=== PATIENT | female | born 1965 | race Caucasian/White ===

== ENCOUNTER 2020-06-25 07:09 | Outpatient (REF) | payer OTHER, SELFPAY ==
[2020-06-25 08:06] LABS: MANUAL DIFF FLAG NO
[2020-06-25 08:15] LABS: Basophils Percent Auto 0.7 % (0-2); Eosinophils Absolute Auto 0.2 X10*3/uL (0.0-0.4); Eosinophils Percent Auto 3.3 % (0-4); Hematocrit 41.4 % (37-47); Hemoglobin 13.6 g/dl (12.0-16.0); Imm Gran Abs Auto 0.01 X10*3/uL (0.00-0.03); Imm Gran Pct Auto 0.2 % (0.0-0.4); Lymphocytes Absolute Auto 1.5 X10*3/uL (1.2-4.9); Lymphocytes Percent Auto 28.4 % (20-40); Mean Corpuscular HGB Conc 32.9 g/dl (31.0-35.0); Mean Corpuscular Hemoglobin 31.4 pg (27.0-33.0); Mean Corpuscular Volume 95.6 fL (80-98); Mean Platelet Volume 12.1 fL (9.4-12.3); Monocytes Absolute Auto 0.5 X10*3/uL (0.1-1.2); Monocytes Percent Auto 8.7 % (2-11); Neutrophils Absolute Auto 3.2 X10*3/uL (2.0-8.3); Neutrophils Percent Auto 58.7 % (45-73); Platelet Count 247 X10*3/uL (160-400); Red Blood Count 4.33 X10*6/uL (4.20-5.50); Red Cell Distribution Width 12.2 % (11.0-16.0); White Blood Count 5.4 X10*3/uL (4.8-10.8)
[2020-06-25 08:41] LABS: Alanine Aminotransferase 30 U/L (0-31); Albumin Level 4.6 g/dL (3.5-5.0); Alkaline Phosphatase 67 U/L (39-117); Anion Gap 12 (12-20); Aspartate Amino Transferase 21 U/L (5-31); Bilirubin Total 0.7 mg/dL (0.0-1.0); Blood Urea Nitrogen 18 mg/dL (9-16); Calcium 9.5 mg/dL (8.4-10.2); Carbon Dioxide 30 mmol/L (22-29); Chloride 104 mmol/L (96-108); Cholesterol 232 mg/dL; Estimated Glomerular Filt Rate > 60; Glucose Fasting 107 mg/dL (60-99); HDL Cholesterol 46 mg/dL; LDL Cholesterol Calculated 171 mg/dl; Potassium 3.5 mmol/l (3.3-5.1); Sodium 142 mmol/L (135-145); Total Protein 7.2 g/dL (6.5-8.0); Triglycerides 75 mg/dL
== END 2020-06-25 07:10 | disposition home or self-care (01) ==
LOC: HO.LAB 07:09
PROVIDERS: PCP Internal Medicine Medical Oncology; Visit Provider Internal Medicine Medical Oncology
DX: E66.9 Obesity, unspecified (principal); Z91.09 Other allergy status, other than to drugs and biological substances
CPT/HCPCS: 36415; 80053; 80061; 85025

== ENCOUNTER 2020-11-19 15:07 | Outpatient (REF) | payer OTHER, SELFPAY ==
--- NOTE | ~2020-11-19 | XR_ITS ---
EXAMINATION: XR LUMBOSACRAL SPINE CLINICAL INFORMATION: Low back pain COMPARISON: Previous x-ray December 2010 TECHNIQUE: 2 views of the lumbar spine FINDINGS: There is mild 3 mm anterior subluxation of L4 with respect L5. Bone alignment is otherwise normal. No fracture or dislocation is seen. Disc spaces are normal. There is lower lumbar spine facet arthritis. XR/XR lumbar spine 2-3V IMPRESSION: Lower lumbar spine facet arthritis and mild 3 mm anterior subluxation of L4 with respect L5.
== END 2020-11-19 15:08 | disposition home or self-care (01) ==
LOC: HO.XRAY 15:07
PROVIDERS: PCP Internal Medicine Medical Oncology; Visit Provider Internal Medicine Medical Oncology
DX: M54.5 Low back pain (principal)
CPT/HCPCS: 72100

== ENCOUNTER 2021-03-16 07:26 | Outpatient (REF) | payer OTHER, SELFPAY ==
--- NOTE | ~2021-03-16 | MM_ITS ---
EXAMINATION: MM SCREENING DIGITAL BREAST TOMOSYNTHESIS, BILATERAL CLINICAL INFORMATION: Screening. Asymptomatic. The lifetime risk of breast cancer based on the Tyrer-Cuzick Model is 7.3%. COMPARISON: Mammography: November 27, 2019 and studies dating back to January 30, 2009 TECHNIQUE: Digital breast tomosynthesis is performed in both the craniocaudal and mediolateral oblique views along with computer-aided detection (CAD). Synthesized 2D images are generated from the tomosynthesis. FINDINGS: The breasts are heterogeneously dense, which may obscure small masses (ACR BI-RADS breast composition Category c). There are no significant masses, abnormal calcifications, or other abnormalities. MM/MM tomosynthesis screening BI IMPRESSION: There are no significant changes from prior study. ASSESSMENT: BI-RADS 1: Negative RECOMMENDATION: Routine annual mammography screening. This patient's information was entered into a reminder system with a target due date for their next mammogram.
== END 2021-03-16 07:27 | disposition home or self-care (01) ==
LOC: HO.MAMMO 07:26
PROVIDERS: Visit Provider Internal Medicine Medical Oncology
DX: Z12.31 Encounter for screening mammogram for malignant neoplasm of breast (principal)
CPT/HCPCS: 77063; 77067

== ENCOUNTER → 2021-03-19 08:14 | Outpatient (REF) | payer OTHER, SELFPAY ==
--- NOTE | 2021-03-19 08:19 | CA_ITS ---
Acquisition Time: 2021-03-19 08:22:37 Total Exercise Time: 00:07:30 Test Indications: Screening for CAD Medications: LORATIDINE Protocol: PATRICK Max HR: 148 BPM 90% of Pred: 164 BPM Max BP: 162/076 mmHG Max Work Load: 9.3 METS Exercise stress test with exercise 7 min 30 sec of Patrick protocol, with mild sob, no chest discomfort, without arrythmia, with normotensive response to exercise, without EKG changes meeting criteria for ischemia. Test reviewed with Dr Quesada. Referred By: Hawk Cunningham Overread By: SHALONDA MATAMOROS
== END ==
LOC: HO.CARD 08:14
PROVIDERS: PCP Internal Medicine Medical Oncology; Visit Provider Internal Medicine Medical Oncology
DX: E66.9 Obesity, unspecified (principal); E87.5 Hyperkalemia; Z82.49 Family history of ischemic heart disease and other diseases of the circulatory system
CPT/HCPCS: 93017

== ENCOUNTER 2021-06-09 10:04 | Outpatient (REF) | payer OTHER, SELFPAY ==
[2021-06-09 10:40] LABS: MANUAL DIFF FLAG NO
[2021-06-09 10:53] LABS: Basophils Percent Auto 0.9 % (0-2); Eosinophils Absolute Auto 0.1 X10*3/uL (0.0-0.4); Eosinophils Percent Auto 2.2 % (0-4); Hematocrit 42.2 % (37-47); Hemoglobin 13.7 g/dl (12.0-16.0); Imm Gran Abs Auto 0.02 X10*3/uL (0.00-0.03); Imm Gran Pct Auto 0.4 % (0.0-0.4); Lymphocytes Absolute Auto 1.4 X10*3/uL (1.2-4.9); Lymphocytes Percent Auto 29.4 % (20-40); Mean Corpuscular HGB Conc 32.5 g/dl (31.0-35.0); Mean Corpuscular Hemoglobin 30.6 pg (27.0-33.0); Mean Corpuscular Volume 94.4 fL (80-98); Mean Platelet Volume 11.5 fL (9.4-12.3); Monocytes Absolute Auto 0.4 X10*3/uL (0.1-1.2); Monocytes Percent Auto 8.7 % (2-11); Neutrophils Absolute Auto 2.7 X10*3/uL (2.0-8.3); Neutrophils Percent Auto 58.4 % (45-73); Platelet Count 266 X10*3/uL (160-400); Red Blood Count 4.47 X10*6/uL (4.20-5.50); Red Cell Distribution Width 12.5 % (11.0-16.0); White Blood Count 4.6 X10*3/uL (4.8-10.8)
[2021-06-09 11:11] LABS: Alanine Aminotransferase 29 U/L (0-31); Albumin Level 4.5 g/dL (3.5-5.0); Alkaline Phosphatase 84 U/L (39-117); Anion Gap 11 (12-20); Aspartate Amino Transferase 22 U/L (5-31); Bilirubin Total 0.7 mg/dL (0.0-1.0); Blood Urea Nitrogen 15 mg/dL (9-16); Calcium 9.2 mg/dL (8.4-10.2); Carbon Dioxide 29 mmol/L (22-29); Chloride 106 mmol/L (96-108); Cholesterol 230 mg/dL; Estimated Glomerular Filt Rate > 60; Glucose Fasting 106 mg/dL (60-99); HDL Cholesterol 48 mg/dL; LDL Cholesterol Calculated 165 mg/dl; Sodium 142 mmol/L (135-145); Total Protein 7.1 g/dL (6.5-8.0); Triglycerides 87 mg/dL
== END 2021-06-09 10:05 | disposition home or self-care (01) ==
LOC: HO.LAB 10:04
PROVIDERS: PCP Internal Medicine Medical Oncology; Visit Provider Internal Medicine Medical Oncology
DX: E66.9 Obesity, unspecified (principal); E78.5 Hyperlipidemia, unspecified; Z82.49 Family history of ischemic heart disease and other diseases of the circulatory system
CPT/HCPCS: 36415; 80053; 80061; 85025

== ENCOUNTER 2021-08-10 08:18 | Outpatient (REF) | payer OTHER, SELFPAY ==
[2021-08-10 09:46] LABS: Estimated Average Glucose 103 mg/dL; Hemoglobin A1c % 5.2 %
== END 2021-08-10 08:19 | disposition home or self-care (01) ==
LOC: HO.LAB 08:18
PROVIDERS: PCP Internal Medicine Medical Oncology; Visit Provider Internal Medicine Medical Oncology
DX: R73.9 Hyperglycemia, unspecified (principal)
CPT/HCPCS: 36415; 83036

== ENCOUNTER 2022-03-17 08:43 | Outpatient (REF) | payer OTHER, SELFPAY ==
--- NOTE | ~2022-03-17 | MM_ITS ---
EXAMINATION: MM SCREENING DIGITAL BREAST TOMOSYNTHESIS, BILATERAL CLINICAL INFORMATION: Screening. Asymptomatic. The lifetime risk of breast cancer based on the Tyrer-Cuzick Model is 6%. COMPARISON: Mammography: 03/16/2021, 11/27/2019, 09/15/2016 TECHNIQUE: Digital breast tomosynthesis is performed in both the craniocaudal and mediolateral oblique views along with computer-aided detection (CAD). Synthesized 2D images are generated from the tomosynthesis. FINDINGS: There are scattered areas of fibroglandular density (ACR BI-RADS breast composition Category b). There are no significant masses, abnormal calcifications, or other abnormalities. Parenchymal pattern is similar to prior exams. No developing density or architectural abnormality. No significant changes. MM/MM tomosynthesis screening BI IMPRESSION: No mammographic evidence of malignancy. ASSESSMENT: BI-RADS 1: Negative RECOMMENDATION: Routine annual mammography screening. This patient's information was entered into a reminder system with a target due date for their next mammogram.
== END 2022-03-17 08:44 | disposition home or self-care (01) ==
LOC: HO.MAMMO 08:43
PROVIDERS: PCP Internal Medicine Medical Oncology; Visit Provider Internal Medicine Medical Oncology
DX: Z12.31 Encounter for screening mammogram for malignant neoplasm of breast (principal)
CPT/HCPCS: 77063; 77067

== ENCOUNTER 2022-09-09 06:03 | Outpatient (REF) | payer OTHER, SELFPAY ==
[2022-09-09 06:17] LABS: MANUAL DIFF FLAG NO
[2022-09-09 07:44] LABS: Basophils Absolute Auto 0.1 X10*3/uL (0.0-0.2); Basophils Percent Auto 1.2 % (0-2); Eosinophils Absolute Auto 0.2 X10*3/uL (0.0-0.4); Eosinophils Percent Auto 4.2 % (0-4); Hematocrit 39.2 % (37.0-47.0); Hemoglobin 12.7 g/dl (12.0-16.0); Imm Gran Abs Auto 0.02 X10*3/uL (0.00-0.03); Imm Gran Pct Auto 0.4 % (0.0-0.4); Lymphocytes Absolute Auto 1.6 X10*3/uL (1.2-4.9); Lymphocytes Percent Auto 32.1 % (20-40); Mean Corpuscular HGB Conc 32.4 g/dl (31.0-35.0); Mean Corpuscular Hemoglobin 31.1 pg (27.0-33.0); Mean Corpuscular Volume 95.8 fL (80.0-98.0); Mean Platelet Volume 11.9 fL (9.4-12.3); Monocytes Absolute Auto 0.4 X10*3/uL (0.1-1.2); Monocytes Percent Auto 8.6 % (2-11); Neutrophils Absolute Auto 2.7 x10*3/uL (2.0-8.3); Neutrophils Percent Auto 53.5 % (45-73); Platelet Count 246 X10*3/uL (160-400); Red Blood Count 4.09 X10*6/uL (4.20-5.50); Red Cell Distribution Width 12.4 % (11.0-16.0)
[2022-09-09 08:34] LABS: Alanine Aminotransferase 19 U/L (0-31); Albumin Level 4.5 g/dL (3.5-5.0); Alkaline Phosphatase 77 U/L (39-117); Anion Gap 11 (12-20); Aspartate Amino Transferase 18 U/L (5-31); Bilirubin Total 0.7 mg/dL (0.0-1.0); Blood Urea Nitrogen 19 mg/dL (9-16); Calcium 9.4 mg/dL (8.4-10.2); Carbon Dioxide 30 mmol/L (22-29); Chloride 107 mmol/L (96-108); Cholesterol 258 mg/dL; Estimated Glomerular Filt Rate > 60; Glucose Fasting 105 mg/dL (60-99); HDL Cholesterol 46 mg/dL; LDL Cholesterol Calculated 193 mg/dl; Potassium 4.1 mmol/L (3.3-5.1); Sodium 144 mmol/L (135-145); Total Protein 7.1 g/dL (6.5-8.0); Triglycerides 98 mg/dL
== END 2022-09-09 06:04 | disposition home or self-care (01) ==
LOC: HO.LAB 06:03
PROVIDERS: PCP Internal Medicine Medical Oncology; Visit Provider Internal Medicine Medical Oncology
DX: Z00.00 Encounter for general adult medical examination without abnormal findings (principal); E66.9 Obesity, unspecified; E78.5 Hyperlipidemia, unspecified
CPT/HCPCS: 36415; 80053; 80061; 85025

== ENCOUNTER 2023-02-17 07:22 | Day surgery (SDC) | payer OTHER, SELFPAY ==
[2023-02-11 16:22] VITALS: BMI 34.8
--- NOTE | 2023-02-16 08:32 | P.CONAN_ITS ---
Documented by User: Gretchen Jacobsen NP 02/16/23 08:32 HPI - Anesthesia Eval Consult details Narrative: 57yo F for Colonoscopy [facility] Past Medical History Medical History Asthma Hypertension Lab test negative for COVID-19 virus Surgical History Surgical History History of tubal ligation Hx of hysterectomy Social History Social History Alcohol intake: current Alcohol intake frequency: a few times a month Advance Directives: No Advance Directives Information Provided: Yes Meds Allergies Allergy/AdvReac Type Severity Reaction Status Date / Time No Known Allergies Allergy Verified 02/17/23 07:31 [No Known Allergies*] Home Medications Medication Instructions Recorded Confirmed Last Taken Type albuterol sulfate 90 mcg/actuation 2 puff inhalation Q4-6H PRN 07/29/20 02/17/23 Unknown History aerosol inhaler (ProAir HFA) Shortness Of Breath cetirizine 5 mg-pseudoephedrine ER 1 tab PO BID 07/29/20 02/17/23 Unknown History 120 mg tablet,extended release,12hr (Zyrtec-D) lisinopril 20 mg tablet 20 mg PO DAILY 07/19/22 02/17/23 Unknown History One-A-Day Women's Complete 1 tab PO DAILY 02/17/23 02/17/23 Unknown History Vitamin D3 1 tab PO DAILY 02/17/23 02/17/23 Unknown History biotin 1 tab PO DAILY 02/17/23 02/17/23 Unknown History Exam Exam Date and Time: February 16, 2023 0832 Height,Weight and Vital Signs: Height 5 ft 1 in Weight 83.461 kg Assessment and Plan Assessment Anesthesia Assessment: Chart Reviewed Documented by User: Lizzette Quintana MD 02/17/23 08:00 [facility] Past Medical History Medical History Asthma Hypertension Lab test negative for COVID-19 virus Surgical History Surgical History History of tubal ligation Hx of hysterectomy History of Problems with Anesthesia: No Social History Social History Alcohol intake: current Alcohol intake frequency: a few times a month Advance Directives: No Advance Directives Information Provided: Yes Meds Allergies Allergy/AdvReac Type Severity Reaction Status Date / Time No Known Allergies Allergy Verified 02/17/23 07:31 [No Known Allergies*] Home Medications Medication Instructions Recorded Confirmed Last Taken Type albuterol sulfate 90 mcg/actuation 2 puff inhalation Q4-6H PRN 07/29/20 02/17/23 Unknown History aerosol inhaler (ProAir HFA) Shortness Of Breath cetirizine 5 mg-pseudoephedrine ER 1 tab PO BID 07/29/20 02/17/23 Unknown History 120 mg tablet,extended release,12hr (Zyrtec-D) lisinopril 20 mg tablet 20 mg PO DAILY 07/19/22 02/17/23 Unknown History One-A-Day Women's Complete 1 tab PO DAILY 02/17/23 02/17/23 Unknown History Vitamin D3 1 tab PO DAILY 02/17/23 02/17/23 Unknown History biotin 1 tab PO DAILY 02/17/23 02/17/23 Unknown History Exam Airway Mallampati Class: II TM Dist: >3cm Neck ROM: Full Loose/Missing/Broken Teeth: No Heart: RRR Lungs: CTA Assessment and Plan Assessment Anesthesia Assessment: Anesthesia Plan Discussed Final Anesthetic Review History of Problems with Anesthesia: No NPO: Yes ASA Class: II Final Preanesthetic Review: Meds/Allgs Chart Reviewed, Consent Obtained/Reviewed and Anes Risks/Benef Reviewed Patient Risk: Low Procedure Risk: Low Anesthetic Plan Anesthetic Plan: MAC: Disposition: Standard PACU
[2023-02-17 07:33] VITALS: BP 160/85; PULSE 76; RESP 16; TEMP 36.3; O2SAT 97; BMI 34.0
[2023-02-17] MEDS: Lactated Ringers 1,000 ML 100 ML IVCONT (07:57)
--- NOTE | 2023-02-17 08:36 | MHC.SHP ---
Pre-Procedural Eval Section A Date of Service: 02/17/23 Section B Chief Complaint: screening Relevant Family History (Specify if Yes): No Relevant Social History: None Present Medications: see Short Stay Collaborative assessment Medical History: Significant History (Asthma Hypertension) History of Previous Operations: Relevant previous surgery/procedure and date(s) (History of tubal ligation Hx of hysterectomy) Allergies: Allergies Allergy/AdvReac Type Severity Reaction Status Date / Time No Known Allergies Allergy Verified 02/17/23 07:31 [No Known Allergies*] Review of Systems Sugical H&P ROS: Negative: Constitution, Cardiovascular, Respiratory, Neurological, Psychiatric, Hem-Onc, Allergic/Immunologic, Gastrointestinal, Genitourinary, Musculoskeletal, Integumentary, Endocrine and Eyes/Ears/Nose/Throat Exam Surgical H&P Exam: Normal: HEENT, Normal: Heart, Normal: Lungs, Normal: Extremities, Normal: Abdomen, Normal: Skin and Normal: Neurological Plan Diagnosis/Plan: Unchanged I have reviewed the history and physical and performed a pertinent physical examination on my patient. No changes have occurred unless specified. Time Spent With Patient Time: Total time managing care of this patient today ____ minutes.
--- NOTE | 2023-02-17 08:37 | W.PM.OPN ---
Operative Note Operative Note Date of Service: 02/17/23 Narrative: Operative Information Procedure Description: Colonoscopy Indication: screening Anesthesia: MAC COLONOSCOPY Instrument: Olympus variable stiffness pediatric scope 190L Colonoscopy Monitoring: Vital signs and clinical assessment, continuous EKG monitoring, Pulse oximetry, Carbon Dioxide monitoring and blood pressure monitoring were done throughout the procedure. Colon withdrawal time was 8 minutes. Procedure: The patient was placed in the left lateral decubitis position and pre-procedure medications were administered. After a digital rectal examination of the ano-rectum, the video colonoscope was inserted into the rectum and advanced through the colon to the cecum/TI. The colonoscope was slowly withdrawn in a retrograde panoramic fashion and the colon mucosa was carefully examined including a retroflexed view of the rectum. Findings and interventions are described below. Procedure Difficulty: easy Findings: Terminal Ileum-normal Cecum: 6-7 mm sessile polyp removed with cold forceps Ascending Colon: normal Transverse Colon -normal Descending Colon:normal Sigmoid Colon: one 5-7 mm sessile polyp removed with cold forceps, another 8 mm sessile polyp removed with cold snare Rectum: Retroflexion with small internal hemorrhoids, grade I Anorectum - normal Colon preparation: [place] Bowel Preparation Scale Right colon; 3 Transverse colon: 3 Left colon; 3 (0 = Unprepared colon segment with mucosa not seen due to solid stool that cannot be cleared. 1 = Portion of mucosa of the colon segment seen, but other areas of the colon segment not well seen due to staining, residual stool and/or opaque liquid. 2 = Minor amount of residual staining, small fragments of stool and/or opaque liquid, but mucosa of colon segment seen well. 3 = Entire mucosa of colon segment seen well with no residual staining, small fragments of stool or opaque liquid) Impression and Post Procedure Diagnosis: polyps internal hemorrhoids Plan: High fiber diet leaflet Avoid straining at stool, epsom salts and sitz bath, anusol supps or cream Repeat Colonoscopy in 3-5 years or earlier if clinically indicated Above findings were reviewed with the patient and relevant handouts were provided if indicated.
[2023-02-17 09:11] VITALS: BP 119/64; PULSE 82; RESP 16; TEMP 37; O2SAT 97
[2023-02-17 09:29] VITALS: BP 130/68; PULSE 72; RESP 18; TEMP 37; O2SAT 96
== END 2023-02-17 09:55 | disposition home or self-care (01) ==
PROVIDERS: PCP Internal Medicine Medical Oncology; Visit Provider Internal Medicine Gastroenterology
PROC: 0DJD8ZZ Inspection of Lower Intestinal Tract, Via Natural or Artificial Opening Endoscopic (ICD-10-PCS; CPT 45378; principal; 2023-02-17 08:30)
DX: Z12.11 Encounter for screening for malignant neoplasm of colon (principal); D12.5 Benign neoplasm of sigmoid colon; K63.5 Polyp of colon; K64.0 First degree hemorrhoids; I10 Essential (primary) hypertension; J45.909 Unspecified asthma, uncomplicated; Z79.899 Other long term (current) drug therapy
CPT/HCPCS: 45385; 45380; 88305

== ENCOUNTER 2023-03-04 08:20 | Outpatient (REF) | payer OTHER, SELFPAY ==
[2023-03-04 08:45] LABS: MANUAL DIFF FLAG NO
[2023-03-04 09:06] LABS: Basophils Absolute Auto 0.1 X10*3/uL (0.0-0.2); Eosinophils Absolute Auto 0.2 X10*3/uL (0.0-0.4); Eosinophils Percent Auto 3.3 % (0-4); Hematocrit 39.5 % (37.0-47.0); Hemoglobin 13.1 g/dl (12.0-16.0); Imm Gran Abs Auto 0.04 X10*3/uL (0.00-0.03); Imm Gran Pct Auto 0.8 % (0.0-0.4); Lymphocytes Absolute Auto 1.7 X10*3/uL (1.2-4.9); Mean Corpuscular HGB Conc 33.2 g/dl (31.0-35.0); Mean Corpuscular Hemoglobin 31.6 pg (27.0-33.0); Mean Corpuscular Volume 95.2 fL (80.0-98.0); Mean Platelet Volume 11.5 fL (9.4-12.3); Monocytes Absolute Auto 0.5 X10*3/uL (0.1-1.2); Neutrophils Absolute Auto 2.7 x10*3/uL (2.0-8.3); Neutrophils Percent Auto 51.9 % (45-73); Platelet Count 241 X10*3/uL (160-400); Red Blood Count 4.15 X10*6/uL (4.20-5.50); Red Cell Distribution Width 12.9 % (11.0-16.0); White Blood Count 5.2 X10*3/uL (4.8-10.8)
[2023-03-04 09:58] LABS: Alanine Aminotransferase 26 U/L (0-31); Albumin Level 4.4 g/dL (3.5-5.0); Alkaline Phosphatase 73 U/L (39-117); Anion Gap 16 (12-20); Aspartate Amino Transferase 20 U/L (5-31); Bilirubin Total 0.9 mg/dL (0.0-1.0); Blood Urea Nitrogen 14 mg/dL (9-16); Calcium 9.9 mg/dL (8.4-10.2); Carbon Dioxide 23 mmol/L (22-29); Chloride 108 mmol/L (96-108); Cholesterol 283 mg/dL; Estimated Glomerular Filt Rate > 60; Glucose Fasting 109 mg/dL (60-99); HDL Cholesterol 45 mg/dL; LDL Cholesterol Calculated 223 mg/dl; Potassium 3.5 mmol/L (3.3-5.1); Sodium 143 mmol/L (135-145); Total Protein 7.7 g/dL (6.5-8.0); Triglycerides 75 mg/dL
== END 2023-03-04 08:21 | disposition home or self-care (01) ==
LOC: HO.LAB 08:20
PROVIDERS: PCP Internal Medicine Medical Oncology; Visit Provider Internal Medicine Medical Oncology
DX: E78.5 Hyperlipidemia, unspecified (principal); E66.9 Obesity, unspecified
CPT/HCPCS: 36415; 80053; 80061; 85025

== ENCOUNTER 2023-03-18 08:49 | Outpatient (REF) | payer OTHER, SELFPAY ==
--- NOTE | ~2023-03-18 | MM_ITS ---
EXAMINATION: MM SCREENING DIGITAL BREAST TOMOSYNTHESIS, BILATERAL CLINICAL INFORMATION: Screening. Asymptomatic. The lifetime risk of breast cancer based on the Tyrer-Cuzick Model is 5.6%. COMPARISON: Mammography: This study is compared with the prior mammograms dating back to 2016. TECHNIQUE: Digital breast tomosynthesis is performed in both the craniocaudal and mediolateral oblique views along with computer-aided detection (CAD). Synthesized 2D images are generated from the tomosynthesis. FINDINGS: There are scattered areas of fibroglandular density (ACR BI-RADS breast composition Category b). There are no significant masses, abnormal calcifications, or other abnormalities. MM/MM tomosynthesis screening BI IMPRESSION: No mammographic evidence of malignancy. ASSESSMENT: BI-RADS BI-RADS 1 - Negative RECOMMENDATION: Routine annual mammography screening. 1 year F/U This patient's information was entered into a reminder system with a target due date for their next mammogram.
== END 2023-03-18 08:50 | disposition home or self-care (01) ==
LOC: HO.MAMMO 08:49
PROVIDERS: PCP Internal Medicine Medical Oncology; Visit Provider Internal Medicine Medical Oncology
DX: Z12.31 Encounter for screening mammogram for malignant neoplasm of breast (principal)
CPT/HCPCS: 77063; 77067

== ENCOUNTER → 2023-03-18 09:00 | Outpatient (BNV) | payer OTHER, SELFPAY | PROVIDERS: PCP Internal Medicine Medical Oncology; Visit Provider Radiology Diagnostic Radiology | DX: Z12.31 Encounter for screening mammogram for malignant neoplasm of breast (principal) | CPT/HCPCS: 77063; 77067 ==

== ENCOUNTER 2023-05-19 11:43 | Outpatient (REF) | payer OTHER, SELFPAY ==
[2023-05-19 11:59] LABS: MANUAL DIFF FLAG NO
[2023-05-19 12:41] LABS: Basophils Absolute Auto 0.1 X10*3/uL (0.0-0.2); Basophils Percent Auto 1.1 % (0-2); Eosinophils Absolute Auto 0.1 X10*3/uL (0.0-0.4); Eosinophils Percent Auto 2.1 % (0-4); Hematocrit 39.7 % (37.0-47.0); Imm Gran Abs Auto 0.03 X10*3/uL (0.00-0.03); Imm Gran Pct Auto 0.6 % (0.0-0.4); Lymphocytes Absolute Auto 1.4 X10*3/uL (1.2-4.9); Lymphocytes Percent Auto 30.1 % (20-40); Mean Corpuscular HGB Conc 32.7 g/dl (31.0-35.0); Mean Corpuscular Hemoglobin 31.3 pg (27.0-33.0); Mean Corpuscular Volume 95.7 fL (80.0-98.0); Mean Platelet Volume 12.5 fL (9.4-12.3); Monocytes Absolute Auto 0.4 X10*3/uL (0.1-1.2); Monocytes Percent Auto 8.1 % (2-11); Neutrophils Absolute Auto 2.7 x10*3/uL (2.0-8.3); Platelet Count 232 X10*3/uL (160-400); Red Blood Count 4.15 X10*6/uL (4.20-5.50); Red Cell Distribution Width 12.5 % (11.0-16.0); White Blood Count 4.7 X10*3/uL (4.8-10.8)
[2023-05-19 13:43] LABS: Alanine Aminotransferase 24 U/L (0-31); Albumin Level 4.5 g/dL (3.5-5.0); Alkaline Phosphatase 75 U/L (39-117); Anion Gap 12 (12-20); Aspartate Amino Transferase 22 U/L (5-31); Bilirubin Total 0.7 mg/dL (0.0-1.0); Blood Urea Nitrogen 20 mg/dL (9-16); Calcium 9.9 mg/dL (8.4-10.2); Carbon Dioxide 29 mmol/L (22-29); Chloride 107 mmol/L (96-108); Cholesterol 237 mg/dL (<200); Estimated Glomerular Filt Rate > 60; Glucose Random 103 mg/dL (60-115); HDL Cholesterol 42 mg/dL (>40); LDL Cholesterol Calculated 170 mg/dL (<100); Potassium 3.9 mmol/L (3.3-5.1); Sodium 144 mmol/L (135-145); Total Protein 7.6 g/dL (6.5-8.0); Triglycerides 129 mg/dL (<150)
== END 2023-05-19 11:44 | disposition home or self-care (01) ==
LOC: HO.LAB 11:43
PROVIDERS: PCP Internal Medicine Medical Oncology; Visit Provider Internal Medicine Medical Oncology
DX: Z00.00 Encounter for general adult medical examination without abnormal findings (principal); E66.9 Obesity, unspecified; E78.5 Hyperlipidemia, unspecified
CPT/HCPCS: 36415; 80053; 80061; 85025

== ENCOUNTER 2024-03-19 07:41 | Outpatient (REF) | payer OTHER, SELFPAY ==
--- NOTE | ~2024-03-19 | MM_ITS ---
EXAMINATION: MM SCREENING DIGITAL BREAST TOMOSYNTHESIS, BILATERAL CLINICAL INFORMATION: Screening. Asymptomatic. COMPARISON: Mammography: This study is compared with prior exams dating back to 2020. TECHNIQUE: Digital breast tomosynthesis is performed in both the craniocaudal and mediolateral oblique views along with computer-aided detection (CAD). Synthesized 2D images are generated from the tomosynthesis. FINDINGS: The breasts are heterogeneously dense, which may obscure small masses (ACR BI-RADS breast composition Category c). There are no significant masses, abnormal calcifications, or other abnormalities. MM/MM tomosynthesis screening BI IMPRESSION: No mammographic evidence of malignancy. ASSESSMENT: BI-RADS BI-RADS 1 - Negative RECOMMENDATION: Routine annual mammography screening. 1 year F/U This examination should not preclude the clinical evaluation of a suspicious palpable abnormality. This patient's information was entered into a reminder system with a target due date for their next mammogram.
== END 2024-03-19 07:42 | disposition home or self-care (01) ==
LOC: HO.MAMMO 07:41
PROVIDERS: PCP Internal Medicine Medical Oncology; Visit Provider Advanced Practice Midwife
DX: Z12.31 Encounter for screening mammogram for malignant neoplasm of breast (principal)
CPT/HCPCS: 77063; 77067

== ENCOUNTER → 2024-03-19 08:00 | Outpatient (BNV) | payer OTHER, SELFPAY | PROVIDERS: PCP Internal Medicine Medical Oncology; Visit Provider Radiology Diagnostic Radiology | DX: Z12.31 Encounter for screening mammogram for malignant neoplasm of breast (principal) | CPT/HCPCS: 77063; 77067 ==

== ENCOUNTER 2024-04-13 10:48 | Outpatient (REF) | payer OTHER, SELFPAY ==
[2024-04-13 11:03] LABS: MANUAL DIFF FLAG NO
[2024-04-13 11:36] LABS: Basophils Percent Auto 0.5 % (0-2); Eosinophils Absolute Auto 0.2 X10*3/uL (0.0-0.4); Eosinophils Percent Auto 2.9 % (0-4); Hemoglobin 13.6 g/dl (12.0-16.0); Imm Gran Abs Auto 0.04 X10*3/uL (0.00-0.03); Imm Gran Pct Auto 0.7 % (0.0-0.4); Lymphocytes Absolute Auto 1.4 X10*3/uL (1.2-4.9); Lymphocytes Percent Auto 25.4 % (20-40); Mean Corpuscular Hemoglobin 32.6 pg (27.0-33.0); Mean Corpuscular Volume 95.9 fL (80.0-98.0); Mean Platelet Volume 11.6 fL (9.4-12.3); Monocytes Absolute Auto 0.4 X10*3/uL (0.1-1.2); Neutrophils Absolute Auto 3.4 x10*3/uL (2.0-8.3); Neutrophils Percent Auto 62.5 % (45-73); Platelet Count 244 X10*3/uL (160-400); Red Blood Count 4.17 X10*6/uL (4.20-5.50); Red Cell Distribution Width 12.6 % (11.0-16.0); White Blood Count 5.5 X10*3/uL (4.8-10.8)
[2024-04-13 12:05] LABS: Alanine Aminotransferase 47 U/L (0-31); Albumin Level 4.6 g/dL (3.5-5.0); Alkaline Phosphatase 81 U/L (39-117); Anion Gap 14 (12-20); Aspartate Amino Transferase 33 U/L (5-31); Bilirubin Total 0.6 mg/dL (0.0-1.0); Blood Urea Nitrogen 16 mg/dL (9-16); Calcium 9.5 mg/dL (8.4-10.2); Carbon Dioxide 28 mmol/L (22-29); Chloride 106 mmol/L (96-108); Cholesterol 238 mg/dL (<200); Estimated Glomerular Filt Rate > 60; Glucose Fasting 117 mg/dL (60-99); HDL Cholesterol 40 mg/dL (>40); LDL Cholesterol Calculated 172 mg/dL (<100); Potassium 4.3 mmol/L (3.3-5.1); Sodium 144 mmol/L (135-145); Total Protein 7.8 g/dL (6.5-8.0); Triglycerides 133 mg/dL (<150)
== END 2024-04-13 10:49 | disposition home or self-care (01) ==
LOC: HO.LAB 10:48
PROVIDERS: PCP Internal Medicine Medical Oncology; Visit Provider Internal Medicine Medical Oncology
DX: Z00.00 Encounter for general adult medical examination without abnormal findings (principal); E78.5 Hyperlipidemia, unspecified
CPT/HCPCS: 36415; 80053; 80061; 85025

== ENCOUNTER 2024-05-03 09:55 | Outpatient (REF) | payer OTHER, SELFPAY ==
--- NOTE | ~2024-05-03 | MM_ITS ---
EXAMINATION: BONE DENSITOMETRY CLINICAL INDICATION: Age-related osteoporosis without current pathological fracture. COMPARISON: This is the patient's baseline examination. TECHNIQUE: Using a [employer] DXA System (software version: 13.1) manufactured by [employer], dual-energy x-ray absorptiometry was performed of the lumbar spine and left hip. The images are of good technical quality. Summary results are attached. FINDINGS: LEFT FEMUR, NECK: BMD 1.002 g/cm2, Z-score 0.4, T-score -0.3, normal. LEFT FEMUR, TOTAL: BMD 1.157 g/cm2, Z-score 1.4, T-score 1.2, normal. AP SPINE L1-L3 (excluding L4): The data of L1-L4 has been changed to exclude the L4 vertebral body, because degenerative sclerosis at this level may cause overestimation of lumbar spine density. BMD 1.077 g/cm2, Z-score -0.5, T-score -0.8, normal. IDENTIFIED RISK FACTORS: Menopause, hysterectomy. HISTORY OF FRACTURE: None listed. MEDICATIONS: Calcium supplements or multivitamin, vitamin D. MM/XR DEXA axial skeleton IMPRESSION: 1. DIAGNOSIS: Normal bone density based on the lowest T-score value of -0.8 in the lumbar spine applying World Health Organization criteria. 2. 10-YEAR FRACTURE RISK PREDICTION, FRAX: According to the guidelines, FRAX calculation should only be performed on patients in the osteopenia bone density category. Therefore, FRAX was not performed on this patient. 3. Treatment Recommendations: NOF guidelines recommend consideration for treatment in postmenopausal women and men age 50 and older presenting with the following: -A hip or vertebral (clinical or morphometric) fracture. -T-score less than or equal to -2.5 at the femoral neck or spine after appropriate evaluation to exclude secondary causes. -Low bone mass at the hip or spine and a 10-year fracture probability by FRAX of greater than or equal to 3% for hip fracture or greater than or equal to 20% for major osteoporotic fracture based on the [place] adapted WHO algorithm. 4. Other Recommendations: All treatment decisions require clinical judgment and consideration of individual patient factors, including patient preferences, comorbidities, previous drug use, risk factors not captured in the FRAX model (e.g. frailty, falls, vitamin D deficiency, increased bone turnover, interval significant decline in bone density) and possible under or overestimation of fracture risk by FRAX. FUTURE SCAN RECOMMENDATION: People with diagnosed cases of osteoporosis or at high risk for fracture should have regular bone mineral density tests. For patients eligible for Medicare, routine testing is allowed once every 2 years. The testing frequency can be increased to one year for patients who have rapidly progressing disease, those who are receiving or discontinuing medical therapy to restore bone mass, or have additional risk factors.
== END 2024-05-03 09:56 | disposition home or self-care (01) ==
LOC: HO.MAMMO 09:55
PROVIDERS: PCP Internal Medicine Medical Oncology; Visit Provider Internal Medicine Medical Oncology
DX: M81.0 Age-related osteoporosis without current pathological fracture (principal)
CPT/HCPCS: 77080

== ENCOUNTER 2024-08-07 10:01 | Outpatient (REF) | payer OTHER, SELFPAY ==
[2024-08-07 10:31] LABS: MANUAL DIFF FLAG NO
[2024-08-07 11:22] LABS: Basophils Absolute Auto 0.1 X10*3/uL (0.0-0.2); Eosinophils Absolute Auto 0.2 X10*3/uL (0.0-0.4); Eosinophils Percent Auto 3.1 % (0-4); Hematocrit 42.4 % (37.0-47.0); Imm Gran Abs Auto 0.05 X10*3/uL (0.00-0.03); Lymphocytes Absolute Auto 1.4 X10*3/uL (1.2-4.9); Lymphocytes Percent Auto 27.8 % (20-40); Mean Corpuscular Hemoglobin 31.5 pg (27.0-33.0); Mean Corpuscular Volume 95.5 fL (80.0-98.0); Monocytes Absolute Auto 0.4 X10*3/uL (0.1-1.2); Neutrophils Absolute Auto 3.1 x10*3/uL (2.0-8.3); Neutrophils Percent Auto 59.1 % (45-73); Platelet Count 256 X10*3/uL (160-400); Red Blood Count 4.44 X10*6/uL (4.20-5.50); Red Cell Distribution Width 12.6 % (11.0-16.0); White Blood Count 5.2 X10*3/uL (4.8-10.8)
[2024-08-07 11:50] LABS: Albumin Level 4.6 g/dL (3.5-5.0); Alkaline Phosphatase 83 U/L (39-117); Anion Gap 9 (12-20); Aspartate Amino Transferase 33 U/L (5-31); Bilirubin Total 0.8 mg/dL (0.0-1.0); Blood Urea Nitrogen 17 mg/dL (9-16); Calcium 9.9 mg/dL (8.4-10.2); Carbon Dioxide 30 mmol/L (22-29); Chloride 107 mmol/L (96-108); Cholesterol 239 mg/dL (<200); Estimated Glomerular Filt Rate > 60; Glucose Fasting 133 mg/dL (60-99); HDL Cholesterol 45 mg/dL (>40); LDL Cholesterol Calculated 166 mg/dL (<100); Potassium 3.9 mmol/L (3.3-5.1); Sodium 142 mmol/L (135-145); Total Protein 7.9 g/dL (6.5-8.0); Triglycerides 142 mg/dL (<150)
[2024-08-07 13:19] LABS: Alanine Aminotransferase 48 U/L (0-31)
== END 2024-08-07 10:02 | disposition home or self-care (01) ==
LOC: HO.LAB 10:01
PROVIDERS: PCP Internal Medicine Medical Oncology; Visit Provider Internal Medicine Medical Oncology
DX: Z00.00 Encounter for general adult medical examination without abnormal findings (principal); E78.5 Hyperlipidemia, unspecified
CPT/HCPCS: 36415; 80053; 80061; 85025

== ENCOUNTER 2025-03-26 07:57 | Outpatient (REF) | payer OTHER, SELFPAY ==
--- OUTSIDE RECORDS SUMMARY | 2025-03-26 08:00 | XMS_ITS | Clinical Summary ---
Author Organization [facility] Address [address] [place] [address] Phone Care Team Providers Care [place] Warden Name Role Phone Hawk Cunningham MD Primary Care Provider [phone] Allergies No known active allergies Medications cholecalciferol (VITAMIN D-3) 50 mcg (2,000 unit) capsule Take 1 capsule (2,000 Units total) by mouth 1 (one) time each day. 04/20/2017 Active albuterol HFA (PROAIR HFA ; PROVENTIL HFA ; VENTOLIN HFA) 90 mcg/actuation inhaler 1 puff every 4 (four) hours if needed. 05/07/2024 Active metoprolol succinate (TOPROL-XL) 50 mg 24 hr tablet Take 1 tablet (50 mg total) by mouth 1 (one) time each day. for 90 days 05/07/2024 Active Active Problems No known active problems Surgical History Surgery Date Site/Laterality Comments HYSTERECTOMY PROCEDURE: HISTORICAL HYSTERECTOMY; COMMENT: supracervical Medical History Medical History Date Comments HTN (hypertension) DX:HTN (hyper tension) Family History Medical History Relation Name Comments Diabetes Father Diabetes Mother No Known Problems Sister Breast cancer Neg Hx Relation Name Status Comments Father Alive Mother Alive Sister Social History Tobacco Use Types Packs/Day Years Used Date Smoking Tobacco: Never Smokeless Tobacco: Never Alcohol Use Standard Drinks/Week Comments Yes 0 (1 standard drink = 0.6 oz pur e alcohol) Comments No Sex and Gender Information Value Date Recorded Sex Assigned at Not on file Legal Sex Female 8:53 PM EST Gender Identity Not on file Sexual Orientation Not on file Obstetrics History Para Term AB IAB SAB Ectopic Multiple Livin g Live Births 2 2 Date Outcome GA Total Labor Labor/2nd/3rd Weight Sex Type Anes PTL Araceli A1 A5 Name Clin Para Para Last Filed Vital Signs Vital Sign Reading Time Taken Comments Blood Pressure 133/84 08/06/2024 10:03 AM EST Pulse 94 08/06/2024 10:03 AM EST Temperature - - Respiratory Rate - - Oxygen Saturation - - Inhaled Oxygen Concentration - - Weight 91.6 kg (202 lb) 08/06/2024 10:03 AM EST Height 154.9 cm (5' 1 ) 08/06/2024 10:03 AM EST Body Mass Index 38.17 08/06/2024 10:03 AM EST Plan of Treatment Health Maintenance Due Date Last Done Comments Breast Cancer Screening 1965 DTaP,Tdap,and Td Vaccines (1 - Tdap) 1983 Pneumococcal Vaccine: 50+ Years (1 of 1 - PCV) 2014 Zoster Vaccines (1 of 2) 2014 Cholesterol Screening (Lipid Panel) 08/21/2022 Colorectal Cancer Screening: Colonoscopy 08/21/2022 Depression Screening 08/21/2022 HIV Screening 08/21/2022 Hepatitis C Screening 08/21/2022 Social Influencers of Health Screening 08/21/2022 COVID-19 Vaccine (4 - 2023-2 5 season) 2024 01/12/2022, 08/27/2021, 08/20/2021 RSV Immunization Adult Patients (1 - Risk 60-74 years 1-dose series) 2024 Influenza Vaccine (#1) 2025 3, 05/20/2022, 08/20/2021 Cervical Cancer Screening: HPV 07/29/2028 07/29/2023 MMR Vaccines Aged Out 01/14/2019 No longer eligi ble based on patient's age to complete this topic HIB Vaccines Aged Out No longer eligi ble based on patient's age to complete this topic HPV Vaccines Aged Out No longer eligi ble based on patient's age to complete this topic Hepatitis A Vaccines Aged Out No long er eligible based on patient's age to complete this topic Hepatitis B Vaccines Aged Out No long er eligible based on patient's age to complete this topic IPV Vaccines Aged Out No longer eligi ble based on patient's age to complete this topic Meningococcal ACWY Vaccine Aged Out N o longer eligible based on patient's age to complete this topic Meningococcal B Vaccine Aged Out No l onger eligible based on patient's age to complete this topic RSV Immunization Patients Under 20 months Aged Out No longer eligible b ased on patient's age to complete this topic Varicella Vaccines Aged Out No longer eligible based on patient's age to complete this topic Procedures Procedure Name Priority Date/Time Associated Diagnosis Comments HPV Routine 07/29/2023 from Last 3 Months or Most Recently Relevant to Health Maintenance Results * Cervical Cancer Screening: HPV (07/29/2023) Cervical Cancer Screening: HPV no interpretation , abstracted Historical Provider MD HEALTH MAINTENANCE Final Result from Last 3 Months or Most Recently Relevant to Health Maintenance Insurance [facility] [address] [place] [address] Care Teams [place] Relationship Specialty Start Date End Date Hawk Cunningham MD [address] [place] [id number] PCP - General 04/15/23
--- OUTSIDE RECORDS SUMMARY | 2025-03-26 08:00 | XMS_ITS | Patient Health Record ---
Author Organization Hawk Cunningham III, MD Address [address] [place] [address] Care Team Providers Care Nib Assembler Name Role Phone Hawk Cunningham Primary Care Provider Allergies Allergen (clinical drug ingredient) Drug/Non Drug Allergy documented on EMR Reaction Allergy Type Onset Date Status Seasonale Unknown Drug Allergy Active Results Component Value Reference Range Notes URINE DIP STICK Reviewed date:04/13/2024 10:28:06 AM Interpretation: Performing Lab: Notes/Report: SG 1.020 1.005 - 1.025 pH 5.0 5.0 - 9.0 CHERYL Negative Negative - NIT Negative Negative - PRO 15 Negative - Trace GLU Negative Negative - KET 5 Negative - UBG 0.2 0.1 - 1.8 PRADEEP Negative 0.2 - 1.3 BLD Positive Negative - Menstrating no Lipid Panel Reviewed date:04/13/2024 04:18:05 PM Interpretation: Performing Lab:[facility], [address] [place] [phone] Notes/Report: Triglycerides 133 <150 mg/dL Desirable Triglyceride: less than 150 mg/dL Borderline High Triglyceride 150-199 mg/dL High Triglyceride: 200-499 mg/dL Very High Triglyceride: greater than or equal to 5OO mg/dL Cholesterol 238 <200 mg/dL Desirable Cholesterol: less than 200 mg/dL Borderline High Cholesterol: 200-239 mg/dL High Cholesterol: greater than 239 mg/dL LDL Cholesterol Calculated 172 <100 mg/dL Desirable LDL: less than 100 mg/dL Near Optimal/Above Optimal LDL: 110-129 mg/dL Borderline High LDL: 130-159 mg/dL High LDL: 160-189 mg/dL Very High LDL: greater than or equal to 190 mg/dL HDL Cholesterol 40 >40 mg/dL Desirable HDL: greater than 40 mg/dL Note: This HDL assay may give artificially low results in patients with liver disease. Complete Blood Count Auto Di ff Reviewed date:04/13/2024 04:18:05 PM Interpretation: Performing Lab:[facility], [address] [place] [phone] Notes/Report: White Blood Count 5.5 4.8-10.8 X10*3/uL Red Blood Count 4.17 4.20-5.50 X10*6/uL Hemoglobin 13.6 12.0-16.0 g/dl Hematocrit 40.0 37.0-47.0 % Mean Corpuscular Volume 95.9 80.0-98.0 fL Mean Corpuscular Hemoglobin 32.6 27.0-33.0 pg Mean Corpuscular HGB Conc 34.0 31.0-35.0 g/dl Red Cell Distribution Width 12.6 11.0-16.0 % Platelet Count 244 160-400 X10*3/uL Mean Platelet Volume 11.6 9.4-12.3 fL Neutrophils Percent Auto 62.5 45-73 % Imm Gran Pct Auto 0.7 0.0-0.4 % Lymphocytes Percent Auto 25.4 20-40 % Monocytes Percent Auto 8.0 2-11 % Eosinophils Percent Auto 2.9 0-4 % Basophils Percent Auto 0.5 0-2 % NRBC Pct Auto 0.0 0.0-0.2 /100WBC Neutrophils Absolute Auto 3.4 2.0-8.3 x10*3/u L Imm Gran Abs Auto 0.04 0.00-0.03 X10*3/uL Lymphocytes Absolute Auto 1.4 1.2-4.9 X10*3/u L Monocytes Absolute Auto 0.4 0.1-1.2 X10*3/uL Eosinophils Absolute Auto 0.2 0.0-0.4 X10*3/u L Basophils Absolute Auto 0.0 0.0-0.2 X10*3/uL NRBC Abs Auto 0.000 0.0-0.012 X10*3/uL Comprehensive [place]. Panel Fa st Reviewed date:04/13/2024 04:18:05 PM Interpretation: Performing Lab:[facility], [address] [place] [address] [place] [address] Notes/Report: Sodium 144 135-145 mmol/L Potassium 4.3 3.3-5.1 mmol/L Chloride 106 96-108 mmol/L Carbon Dioxide 28 22-29 mmol/L Anion Gap 14 12-20 Blood Urea Nitrogen 16 9-16 mg/dL Creatinine 0.85 0.5-1.4 mg/dL Estimated Glomerular Filt Rate > 60 NOTE: For -British individuals, multiply the result by 1.210. Chronic Kidney Disease: Estimated GFR < 60 mL/min/1.73m2 Severe Kidney Disease: Estimated GFR < 15 mL/min/1.73m2 Glucose Fasting 117 60-99 mg/dL A fasting glucose from 100-125 mg/dl is considered impaired (pre-diabetes). Calcium 9.5 8.4-10.2 mg/dL Bilirubin Total 0.6 0.0-1.0 mg/dL Aspartate Amino Transferase 33 5-31 U/L Alanine Aminotransferase 47 0-31 U/L Total Protein 7.8 6.5-8.0 g/dL Albumin Level 4.6 3.5-5.0 g/dL Alkaline Phosphatase 81 39-117 U/L XR DEXA axial skeleton Reviewed date:06/18/2024 08:25:51 AM Interpretation: Performing Lab: Notes/Report: [address] [place] [address] Mammography Report Signed Patient: Val Jimenez MR#: [id number] : 1965 Acct:[id number] Age/Sex: 58 / F ADM Date: 05/03/24 Loc: HO.MAMMO Attending Dr: Hawk Cunningham MD Ordering Physician: Hawk Cunningham MD Results: Date of Service: 05/03/24 Follow Up: Procedure(s): XR DEXA axial skeleton Accession Number(s): [id number] cc: Hawk Cunningham MD EXAMINATION: BONE DENSITOMETRY CLINICAL INDICATION: Age-related osteoporosis without current pathological fracture. COMPARISON: This is the patient's baseline examination. TECHNIQUE: Using a CardioMEMS DXA System (software version: 13.1) manufactured by [employer] dual-energy x-ray absorptiometry was performed of the lumbar spine and left hip. The images are of good technical quality. Summary results are attached. FINDINGS: LEFT FEMUR, NECK: BMD 1.002 g/cm2, Z-score 0.4, T-score -0.3, normal. LEFT FEMUR, TOTAL: BMD 1.157 g/cm2, Z-score 1.4, T-score 1.2, normal. AP SPINE L1-L3 (excluding L4): The data of L1-L4 has been changed to exclude the L4 vertebral body, because degenerative sclerosis at this level may cause overestimation of lumbar spine density. BMD 1.077 g/cm2, Z-score -0.5, T-score -0.8, normal. IDENTIFIED RISK FACTORS: Menopause, hysterectomy. HISTORY OF FRACTURE: None listed. MEDICATIONS: Calcium supplements or multivitamin, vitamin D. MM/XR DEXA axial skeleton IMPRESSION: 1. DIAGNOSIS: Normal bone density based on the lowest T-score value of -0.8 in the lumbar spine applying World Health Organization criteria. 2. 10-YEAR FRACTURE RISK PREDICTION, FRAX: According to the guidelines, FRAX calculation should only be performed on patients in the osteopenia bone density category. Therefore, FRAX was not performed on this patient. 3. Treatment Recommendations: NOF guidelines recommend consideration for treatment in postmenopausal women and men age 50 and older presenting with the following: -A hip or vertebral (clinical or morphometric) fracture. -T-score less than or equal to -2.5 at the femoral neck or spine after appropriate evaluation to exclude secondary causes. -Low bone mass at the hip or spine and a 10-year fracture probability by FRAX of greater than or equal to 3% for hip fracture or greater than or equal to 20% for major osteoporotic fracture based on the [place] adapted WHO algorithm. 4. Other Recommendations: All treatment decisions require clinical judgment and consideration of individual patient factors, including patient preferences, comorbidities, previous drug use, risk factors not captured in the FRAX model (e.g. frailty, falls, vitamin D deficiency, increased bone turnover, interval significant decline in bone density) and possible under or overestimation of fracture risk by FRAX. FUTURE SCAN RECOMMENDATION: People with diagnosed cases of osteoporosis or at high risk for fracture should have regular bone mineral density tests. For patients eligible for Medicare, routine testing is allowed once every 2 years. The testing frequency can be increased to one year for patients who have rapidly progressing disease, those who are receiving or discontinuing medical therapy to restore bone mass, or have additional risk factors. Dictated By: Kulwant Medrano MD Signed By: <Electronically signed by Kulwant Medrano MD in OV> 05/03/24 1533 DD/ 1030 TD/TT: [facility] [facility] Supervisor: SIRENA [place] [facility] [address] [place] [address] Mammography Report Signed Patient: Stevenson Jimenez MR#: [id number] : 1965 Acct:[id number] Age/Sex: 58 / F ADM Date: 05/03/24 Loc: HO.MAMMO Attending Dr: Hawk Cunningham MD Ordering Physician: Hawk Cunningham MD Results: Date of Service: 05/03/24 Follow Up: Procedure(s): XR DEX A axial skeleton Accession Number(s): [id number] cc: Hawk Cunningham MD EXAMINATION: BONE DENSITOMETRY CLINICAL INDICATION: Age-related osteoporosis without current pathological fracture. COMPARISON: This is the patient' s baseline examination. TECHNIQUE: Using a CardioMEMS DXA System (software version: 13.1) manufactured b [employer], dual-energy x-ray absorptiometry was performed of the lumbar spine and left hip. The images are of good technical quality. Summary results are attached. FINDINGS: LEFT FEMUR, NECK: BMD 1.002 g/cm2, Z-score 0.4, T-score -0.3, normal. LEFT FEMUR, TOTAL: BMD 1.157 g/cm2, Z-score 1.4, T-score 1.2, normal. AP SPINE L1-L3 (excluding L4): The data of L1-L4 has been changed to exclude the L4 vertebral body, because degenerative sclerosis at this level may cause overestimation of lumbar spine density. BMD 1.077 g/cm2, Z-score -0.5, T-score -0.8, normal. IDENTIFIED RISK FACTORS: Menopause, hysterectomy. HISTORY OF FRACTURE: None listed. MEDICATIONS: Calcium supplements or multivitamin, vitamin D. MM/XR DEXA axial skeleton IMPRESSION: 1. DIAGNOSIS: Normal bone density based on the lowest T-score value of -0.8 in the lumbar spine applying World Health Organization criteria. 2. 10-YEAR FRACTURE RISK PREDICTION, FRAX: According to the guidelines, FRAX calculation rony uld only be performed on patients in the osteopenia bone density categor y. Therefore, FRAX was not performed on this patient. 3. Treatment Recommendations: NOF guidelines recommend consideration for treatment in postmenopausal women and men age 50 and older presenting with the following: -A hip or vertebral (clinical or morphometric) fracture. -T-score less than o r equal to -2.5 at the femoral neck or spine after appropriate evaluati on to exclude secondary causes. -Low bone mass at th e hip or spine and a 10-year fracture probability by FRAX of greater t haynes or equal to 3% for hip fracture or greater than or equal to 20% for major osteoporotic fracture based on the [place] adapted WHO algorithm. 4. Other Recommendations: All treatment decisions require clinical judgment and consideration of individual patient factors, including patient preferences, comorbidities, previous drug use, risk factors not captured in the FRAX model (e.g. frailty, falls, vitamin D deficiency, increased bone turnover, interval significant decline in bone density) and possible under o r overestimation of fracture risk by FRAX. FUTURE SCAN RECOMMENDATION: People with diagnose d cases of osteoporosis or at high risk for fracture should have regular bone mineral density tests. For patients eligible for Medicar e, routine testing is allowed once every 2 years. The testing frequenc y can be increased to one year for patients who have rapidly progressing disease, those who are receiving or discontinuing medica l therapy to restore bone mass, or have additional risk factors. Dictated By: Kulwant Medrano MD Signed By: <Electronically signed by Kulwant Medrano MD in OV> 05/03/24 1533 DD/ 1030 TD/TT: Geophysical Laboratory Supervisor: SIRENA Complete Blood Count Auto Di ff Reviewed date:2024 08:51:59 AM Interpretation: Performing Lab:[facility], [address] [place] [phone] Notes/Report: White Blood Count 5.2 4.8-10.8 X10*3/uL Red Blood Count 4.44 4.20-5.50 X10*6/uL Hemoglobin 14.0 12.0-16.0 g/dl Hematocrit 42.4 37.0-47.0 % Mean Corpuscular Volume 95.5 80.0-98.0 fL Mean Corpuscular Hemoglobin 31.5 27.0-33.0 pg Mean Corpuscular HGB Conc 33.0 31.0-35.0 g/dl Red Cell Distribution Width 12.6 11.0-16.0 % Platelet Count 256 160-400 X10*3/uL Mean Platelet Volume 12.0 9.4-12.3 fL Neutrophils Percent Auto 59.1 45-73 % Imm Gran Pct Auto 1.0 0.0-0.4 % Lymphocytes Percent Auto 27.8 20-40 % Monocytes Percent Auto 8.0 2-11 % Eosinophils Percent Auto 3.1 0-4 % Basophils Percent Auto 1.0 0-2 % NRBC Pct Auto 0.0 0.0-0.2 /100WBC Neutrophils Absolute Auto 3.1 2.0-8.3 x10*3/u L Imm Gran Abs Auto 0.05 0.00-0.03 X10*3/uL Lymphocytes Absolute Auto 1.4 1.2-4.9 X10*3/u L Monocytes Absolute Auto 0.4 0.1-1.2 X10*3/uL Eosinophils Absolute Auto 0.2 0.0-0.4 X10*3/u L Basophils Absolute Auto 0.1 0.0-0.2 X10*3/uL NRBC Abs Auto 0.000 0.0-0.012 X10*3/uL Comprehensive [place]. Panel Fa st Reviewed date:2024 08:52:00 AM Interpretation: Performing Lab:[facility], [address] [place] [phone] Notes/Report: Sodium 142 135-145 mmol/L Potassium 3.9 3.3-5.1 mmol/L Chloride 107 96-108 mmol/L Carbon Dioxide 30 22-29 mmol/L Anion Gap 9 12-20 Blood Urea Nitrogen 17 9-16 mg/dL Creatinine 0.91 0.5-1.4 mg/dL Estimated Glomerular Filt Rate > 60 Chronic Kidney Disease: Estimated GFR < 60 mL/min/1.73m2 Severe Kidney Disease: Estimated GFR < 15 mL/min/1.73m2 Glucose Fasting 133 60-99 mg/dL A fasting glucose of 126 mg/dl or greater on more than one occasion is considered diagnostic of diabetes. Calcium 9.9 8.4-10.2 mg/dL Bilirubin Total 0.8 0.0-1.0 mg/dL Aspartate Amino Transferase 33 5-31 U/L Alanine Aminotransferase 48 0-31 U/L Total Protein 7.9 6.5-8.0 g/dL Albumin Level 4.6 3.5-5.0 g/dL Alkaline Phosphatase 83 39-117 U/L Lipid Panel Reviewed date:2024 08:52:00 AM Interpretation: Performing Lab:[facility], [address] [place] [phone] Notes/Report: Triglycerides 142 <150 mg/dL Desirable Triglyceride: less than 150 mg/dL Borderline High Triglyceride 150-199 mg/dL High Triglyceride: 200-499 mg/dL Very High Triglyceride: greater than or equal to 5OO mg/dL Cholesterol 239 <200 mg/dL Desirable Cholesterol: less than 200 mg/dL Borderline High Cholesterol: 200-239 mg/dL High Cholesterol: greater than 239 mg/dL LDL Cholesterol Calculated 166 <100 mg/dL Desirable LDL: less than 100 mg/dL Near Optimal/Above Optimal LDL: 110-129 mg/dL Borderline High LDL: 130-159 mg/dL High LDL: 160-189 mg/dL Very High LDL: greater than or equal to 190 mg/dL HDL Cholesterol 45 >40 mg/dL Desirable HDL: greater than 40 mg/dL Note: This HDL assay may give artificially low results in patients with liver disease. Reason For Referral Reason evaluate and treatme nt severe sciatica Diagnosis 1 Sciatica, unspecifie d laterality (M54.30) Referral Organization Hawk Cunningham III, MD Referring Provider First Name Hawk Referring Provider Last Name Marisa Referring Provider Speciality Internal M edicine Referred Provider [facility] Referred Provider Specialty Physical Med icine General Notes Kimberlee May CMA 08/20 11:47:29 AM >ref/progress note faxed to Yadira HERNANDEZ Suzanne CMA 08/30/2024 03:47:30 PM > MARY called pt but she defered at this time and will call them back to set up appt Referral Priority Routine Medications Medication SIG (Take, Route, Frequency, Duration) Notes Start Date End Date Status Albuterol Sulfate HFA 108 (90 Base) MCG/ACT 1 puff Inhalation every 4 hrs disp one inhaler 2024 Active Metoprolol Succinate ER 50 MG TAKE 1 TABLET BY MOUTH EVERY DAY FOR 90 DAYS Active Vitamin D 50 MCG (2000 UT) 1 tablet Orally Once a day Active Claritin 10 MG 1 tablet Orally Once a day Active Multivitamin - 1 tablet Orally Once a day Active Terbinafine HCl 1 % 1 application Externally Once a day 05/26/2023 Active Albuterol Sulfate HFA 108 (90 Base) MCG/ACT 1 puff as needed Inhalation every 4 hrs 05/26/2023 Active dexAMETHasone 2 MG 1 tablet Orally every 12 hrs 08/14/2024 Active Immunizations Vaccine Route Administration Date Status Comme nts Influenza, quad ID Intradermal 08/27/2021 Administered COVID- 19 Vaccine IM Intramuscular 08/27/2021 Administered Pfzier COVID PFIZER Unknown 08/20/2021 Administered Influenza, quad Unknown 07/24/2013 Administered MMR Unknown 01/14/2019 Administered COVID PFIZER Unknown 01/12/2022 Administered Social History Tobacco Use: Social History Observation Description Date Details (start date - stop date) Never Smoker NA - NA Sex Assigned At : Social History Observation Description Sex Assigned At Female Tobacco Use/Smoking Question Answer Notes Patient is a nonsmoker Additional Findings: Tobacco Non-User Aggressive non-smoker Alcohol Screen Question Answer Notes Did you have a drink contain ing alcohol in the past year? Yes How often did you have a dri nk containing alcohol in the past year? 2 to 4 times a month (2 points) How many drinks did you have on a typical day when you were drinking in the past year? 1 or 2 drinks (0 point) How often did you have 6 or more drinks on one occasion in the past year? Never (0 point) Points 2 Interpretation Negative Problems Problem Type SNOMED Code ICD Code Onset Dates Problem Status W/U Status Risk Notes Problem 839146109055371 Obesity (BMI 30.0-34.9) (E66.9) Active confirmed Her body mass index is 37. Her weight has been stable since her last visit. We discussed consequences of obesity on various weight loss strategies. We discussed diet and nutrition. We made a plan to lose weight at a rate of one half of a pound per week through a diet restricted in fat calories and sodium combined with regular physical activity. Problem 75083895 Other chronic pain (G89.29) Active confirmed She has chroni c intermittent back pain which is now improving. No change in her regimen was necessary today. Problem 67124728 Essential hypertension (I10) Active confirmed The lisinopril was discontinued and she began on metoprolol succinate 25 mg daily. Her systolic blood pressure is 140. We elected to use aggressive weight loss and lifestyle modification as a way to reduce her lipids weight and blood pressure. Problem 40504995 Sciatica, unspecified laterality (M54.30) Active confirmed Problem 561833838 Environmental allergies (Z91.09) Active confirmed She has had no recent complaints of allergy now that it is winter. She expects to have allergies to pollen this coming spring and we will deal with that. Problem Hyperlipidemia, unspecified hyperlipidemia type (E78.5) Active confirmed Her total cholesterol is 239. We have discussed diet and nutrition today. We have reviewed her cardiovascular risk factors. We have elected to try aggressive weight loss to reduce her lipids and weight and blood pressure. Problem 53342477 Sciatica of righ t side (M54.31) Active confirmed The pain has been present for over 6 months but has recently intensified. It is aggravated by rotating the spine but palpation of the right paravertebral musculature does not elicit the pain. The pain is elicited by palpation of the upper right medial gluteal muscles. It is not reproduced by palpation of the sciatic notch. This raises the question of a piriformis syndrome. She will take her cyclobenzaprine . She was referred for [facility] spine and sports for rehabilitation medicine. Problem Osteopenia following menopause (disorder) (106192427) Osteopenia after menopause (M81.0) Active confirmed She will continue on vitamin D as needed as well as 1 g of calcium carbonate daily. Problem 000686309 H/O hysterectomy for benign disease (Z90.710) Active confirmed I have ask ed her to ask the entry specialists whom she will see next month to clarify her menopausal status. Problem 722204099 Gastroesophageal reflux disease with esophagitis without hemorrhage (K21.00) Active confirmed She will use a combination of liquid antacid and omeprazole. Problem 506944231 Family history o f ischemic heart disease (Z82.49) Active confirmed A treadmill stress test has been ordered at her request. Vital Signs Heart Rate 80 /min 08/14/2024 Temperature 97.2 degrees Fahrenheit 08/14/2024 Blood pressure diastolic 78 mm Hg 08/14/2024 Height 62 in 08/21/2024 Blood pressure systolic 138 mm Hg 08/14/2024 Weight 206 lbs 08/21/2024 BMI 37.67 kg/m2 08/21/2024 Encounters Encounter Location Date Provider Diagnosis Hawk Cunningham III, MD [address] [place] [address] [place] [address] 04/13/2024 Hawk Cunningham Hyperlipidemia, unspecified hyperlipidemia type E78.5 ; Osteopenia after menopause M81.0 ; Obesity (BMI 30.0-34.9) E66.9 ; H/O hysterectomy for benign disease Z90.710 ; Environmental allergies Z91.09 ; Gastroesophageal reflux disease with esophagitis without hemorrhage K21.00 and Essential hypertension I10 Hawk Cunningham III, MD [address] [place] [address] [place] [address] 08/14/2024 Hawk Cunningham Sciatica of right si de M54.31 ; Obesity (BMI 30.0-34.9) E66.9 ; Environmental allergies Z91.09 and Hyperlipidemia, unspecified hyperlipidemia type E78.5 Hawk Cunningham III, MD [address] [place] [address] [place] [address] 08/21/2024 Hawk Cunningham Lumbar radiculopathy M54.16 ; Obesity (BMI 30.0-34.9) E66.9 ; Hyperlipidemia, unspecified hyperlipidemia type E78.5 ; Environmental allergies Z91.09 and Gastroesophageal reflux disease with esophagitis without hemorrhage K21.00 Hawk Cunningham III, MD [address] [place] [address] [place] [address] 04/05/2024 Hawk Cunningham Screening due Z13.9 Hawk Cunningham III, MD [address] [place] [address] [place] [address] 2024 Hawk Cunningham Assessments Encounter Date Diagnosis (ICD Code) Assessment Notes T reatment Notes Treatment Clinical Notes 04/13/2024 Hyperlipidemia, unspecified hyperlipidemia type (ICD-10 - E78.5) Her LDL is 172. We have discussed diet and nutrition today. We have reviewed her cardiovascular risk factors. We have elected to try aggressive weight loss to reduce her lipids and weight and blood pressure. 04/13/2024 Osteopenia after menopause (ICD-10 - M81.0) She will continue on vitamin D as needed as well as 1 g of calcium carbonate daily. 08/14/2024 Obesity (BMI 30.0-34.9) (ICD-10 - E66.9) Her [...] and sodium combined with regular physical activity. 08/14/2024 Sciatica of right si de (ICD-10 - M54.31) The pain has been present for over 6 months but has recently intensified. It is aggravated by rotating the spine but palpation of the right paravertebral musculature does not elicit the pain. The pain is elicited by palpation of the upper right medial gluteal muscles. It is not reproduced by palpation of the sciatic notch. This raises the question of a piriformis syndrome. She will take her cyclobenzaprine. She was referred for [facility] spine and sports for rehabilitation medicine. 08/21/2024 Obesity (BMI 30.0-34.9) (ICD-10 - E66.9) [...] sodium combined with regular physical activity. 08/21/2024 Lumbar radiculopathy (ICD-10 - M54.16) Her pain is much improved and she tolerated the dexamethasone without side effects. She will pursue light activity for well and gradually increase back to normal. She was instructed to call me if things worsen. 04/05/2024 Screening due (ICD-1 0 - Z13.9) 04/13/2024 Obesity (BMI 30.0-34.9) (ICD-10 - E66.9) Her body mass index is 37. She has gained 12 pounds since her last visit. We discussed consequences of obesity on various weight loss strategies. We discussed diet and nutrition. We made a plan to lose weight at a rate of one half of a pound per week through a diet restricted in fat calories and sodium combined with regular physical activity. 08/14/2024 Environmental allergies (ICD-10 - Z91.09) She has had no recent complaints of allergy now that it is winter. She expects to have allergies to pollen this coming spring and we will deal with that. 08/21/2024 Hyperlipidemia, unspecified hyperlipidemia type (ICD-10 - E78.5) Her total cholesterol is 239. We have discussed diet and nutrition today. We have reviewed her cardiovascular risk factors. We have elected to try aggressive weight loss to reduce her lipids and weight and blood pressure. 04/13/2024 H/O hysterectomy for benign disease (ICD-10 - Z90.710) I have asked her to ask the entry specialists whom she will see next month to clarify her menopausal status. 08/14/2024 Hyperlipidemia, unspecified hyperlipidemia type (ICD-10 - E78.5) [...] spring and we will deal with that. 04/13/2024 Environmental allergies (ICD-10 - Z91.09) She has had no recent complaints of allergy now that it is winter. She expects to have allergies to pollen this coming spring and we will deal with that. 08/21/2024 Gastroesophageal reflux disease with esophagitis without hemorrhage (ICD-10 - K21.00) She will use a combination of liquid antacid and omeprazole. 04/13/2024 Gastroesophageal reflux disease with esophagitis without hemorrhage (ICD-10 - K21.00) She will use a combination of liquid antacid and omeprazole. 04/13/2024 Essential hypertensi on (ICD-10 - I10) The lisinopril was discontinued and she began on metoprolol succinate 25 mg daily. Her systolic blood pressure is 140. We elected to use aggressive weight loss and lifestyle modification as a way to reduce her lipids weight and blood pressure. Plan Of Treatment Pending Test Test Name Order Date PROFILE, FASTING (COMPREHENSIVE METABOLI C) 12/31/2021 PROFILE, FASTING (COMPREHENSIVE METABOLI C) 03/18/2020 PROFILE, FASTING (COMPREHENSIVE METABOLI C) 03/14/2023 PROFILE, FASTING (COMPREHENSIVE METABOLI C) 03/16/2021 PROFILE, FASTING (COMPREHENSIVE METABOLI C) 09/16/2022 PROFILE, FASTING (COMPREHENSIVE METABOLI C) 07/01/2020 PROFILE, FASTING (COMPREHENSIVE METABOLI C) 04/13/2024 HEMOGLOBIN A1C (GLYCOHEMOGLOBIN) 021 LIPID PANEL 07/01/2020 LIPID PANEL 12/31/2021 LIPID PANEL 03/18/2020 LIPID PANEL 03/14/2023 LIPID PANEL 03/16/2021 CBC w DIFF 07/01/2020 CBC w DIFF 12/31/2021 CBC w DIFF 03/18/2020 CBC w DIFF 03/14/2023 CBC w DIFF 03/16/2021 CBC w DIFF 09/16/2022 CBC WITH AUTO DIFF 04/13/2024 Lipid Panel 09/16/2022 Next Appt Details Provider Name:Hawk Cunningham, 04/16/2025 09:00:00 AM, [address] [place] [address] , [address], [place], [address], Insurance Providers Payer Name Payer Address Payer Phone Subscriber Number Group Number Insured Name Patient Relationship to Insured Coverage Start Date Coverage End Date [facility] [address] [facility] [address] [facility] [place] [phone] [id number] Val Jimenez Self - patient is the insured Medical (General) History Medical History History ICD Code hysterectomy 2014 dysfunction uterine bleeding 2 para 2 environmental allergies obesity GERD Costochondritis 2022 Hyperlipidemia Elevated TSH Surgical History Surgery Date(Month/Year) No history colonoscopy at 02/17/2023 root canal 08/2021 tubal ligation 1985 both Hysterectomy 2015 Hospitalization History Reason Date(Month/Year) No history
== END 2025-03-26 07:58 | disposition home or self-care (01) ==
LOC: HO.MAMMO 07:57
PROVIDERS: PCP Internal Medicine Medical Oncology; Visit Provider Internal Medicine Medical Oncology
DX: Z12.31 Encounter for screening mammogram for malignant neoplasm of breast (principal)
CPT/HCPCS: 77063; 77067

== ENCOUNTER → 2025-03-26 08:00 | Outpatient (BNV) | payer OTHER, SELFPAY | PROVIDERS: PCP Internal Medicine Medical Oncology; Visit Provider Internal Medicine | DX: Z12.31 Encounter for screening mammogram for malignant neoplasm of breast (principal) | CPT/HCPCS: 77063; 77067 ==

== ENCOUNTER 2025-04-17 06:52 | Outpatient (REF) | payer OTHER, SELFPAY ==
--- NOTE | ~2025-04-17 | US_ITS ---
EXAMINATION: US ABDOMEN HISTORY: LEFT LOWER QUADRANT ABDOMINAL PAIN, DIVERTICULITIS, KIDNEY STONE TECHNIQUE: Real-time grayscale ultrasound imaging of the abdomen was performed and images were reviewed. COMPARISON: There are no prior studies available for comparison. FINDINGS: Liver: The right lobe of the liver measures 18.3 cm in size. The left lobe of the liver measures 15.2 cm in size. The liver demonstrates increased echotexture, consistent with steatosis. No focal mass or intrahepatic biliary ductal dilatation is identified. There is normal hepatopedal flow in the portal vein. Gallbladder and biliary tree: The gallbladder is unremarkable, without evidence of calculi, wall thickening, or pericholecystic fluid. There is no sonographic Arias sign. The common bile duct is normal in caliber measuring 3 mm. Kidneys: The right kidney measures 10.1 cm in length. The left kidney measures 10.9 cm in length. The kidneys are unremarkable, without evidence of masses, hydronephrosis, or calculi. Pancreas: The pancreatic head, neck, and body are unremarkable. The pancreatic tail is obscured by bowel gas. Spleen: The spleen is normal in size and contour, measuring 10.5 cm in length. Abdominal aorta and inferior vena cava: The visualized portions of the abdominal aorta and inferior vena cava are normal in caliber. There is no free fluid in the abdomen. US/US abdomen complete IMPRESSION: Hepatomegaly and hepatic steatosis. If there is clinical concern for diverticulitis, CT of the abdomen and pelvis with contrast is recommended. Electronically signed by: Hawk Mcpherson MD 04/17/2025 07:50 AM EDT
--- OUTSIDE RECORDS SUMMARY | 2025-04-17 06:54 | XMS_ITS | Patient Health Record ---
Author Organization Hawk Cunningham III, MD Address [address] [place] [address] Care Team Providers Care Field Installation Technician Name Role Phone Hawk Cunningham Primary Care Provider Allergies Allergen (clinical drug ingredient) Drug/Non Drug Allergy documented on EMR Reaction Allergy Type Onset Date Status Seasonale Unknown Drug Allergy Active Results Component Value Reference Range Notes XR DEXA axial skeleton Reviewed date:06/18/2024 08:25:51 AM Interpretation: Performing Lab: Notes/Report: [address] [place] [address] Mammography Report Signed Patient: Val Jimenez MR#: [id number] : 1965 Acct:[id number] Age/Sex: 58 / F ADM Date: 05/03/24 Loc: HO.MAMMO Attending Dr: Hawk Cunningham MD Ordering Physician: Hawk Cunningham MD Results: Date of Service: 05/03/24 Follow Up: Procedure(s): XR DEXA axial skeleton Accession Number(s): [id number] cc: Hawk Cunningham MD EXAMINATION: BONE DENSITOMETRY CLINICAL INDICATION: Age-related osteoporosis without current pathological fracture. COMPARISON: This is the patient's baseline examination. TECHNIQUE: Using a [employer]k DXA System (software version: 13.1) manufactured by [employer], dual-energy x-ray absorptiometry was performed of the [...] in OV> 05/03/24 1533 DD/ 1030 TD/TT: Prop Drawer: SIRENA [facility] [address] [place] [address] [place] [address] Mammography Report Signed Patient: Stevenson Jimenez MR#: [id number] : 1965 Acct:[id number] Age/Sex: 58 / F ADM Date: 05/03/24 Loc: HO.MAMMO Attending Dr: Hawk Cunningham MD Ordering Physician: Hawk Cunningham MD Results: Date of Service: 05/03/24 Follow Up: Procedure(s): XR DEX A axial skeleton Accession Number(s): [id number] cc: Hawk Cunningham MD EXAMINATION: BONE DENSITOMETRY CLINICAL INDICATION: Age-related osteoporosis without current pathological fracture. COMPARISON: This is the patient' s baseline examination. TECHNIQUE: Using a AnyPerk DXA System (software version: 13.1) [employer], dual-energy x-ray absorptiometry was performed of the [...] in OV> 05/03/24 1533 DD/ 1030 TD/TT: Prop Drawer: SIRENA Complete Blood Count Auto Di ff Reviewed date:2024 08:51:59 AM Interpretation: Performing Lab:[facility], [address] [place] [phone] Notes/Report: White Blood Count 5.2 4.8-10.8 X10*3/uL [...] NRBC Abs Auto 0.000 0.0-0.012 X10*3/uL Comprehensive [place]. Panel Fa st Reviewed date:2024 08:52:00 AM Interpretation: Performing Lab:[facility], [address] [place] [address] Notes/Report: Sodium 142 135-145 mmol/L Potassium 3.9 [...] Panel Reviewed date:2024 08:52:00 AM Interpretation: Performing Lab:[facility], [address] [place] [phone] Notes/Report: Triglycerides 142 <150 mg/dL Desirable Triglyceride: [...] low results in patients with liver disease. MM tomosynthesis screening B I (Not yet reviewed by provider) Interpretation: Performing Lab: Notes/Report: [address] [place] [address] Mammography Report Signed Patient: Val Jimenez MR#: [id number] : 1965 Acct:[id number] Age/Sex: 59 / F ADM Date: 03/26/25 Loc: HO.MAMMO Attending Dr: Hawk Cunningham MD Ordering Physician: Hawk Cunningham MD Results: 2Benign Findings Date of Service: 03/26/25 Follow Up: 1 Year From [facility] ina Mammogram Procedure(s): MM tomosynthesis screening BI Accession Number(s): [id number] cc: Hawk Cunningham MD EXAMINATION: MM SCREENING DIGITAL BREAST TOMOSYNTHESIS, BILATERAL CLINICAL INFORMATION: Screening. Asymptomatic. COMPARISON: Mammography: Comparison is made with available priors TECHNIQUE: Digital breast mammography with tomosynthesis is performed in both the craniocaudal and mediolateral oblique views along with computer-aided detection (CAD). FINDINGS: The breasts are heterogeneously dense, which may obscure small masses (ACR BI-RADS breast composition Category c). Bilateral scattered asymmetries are stable. There are no significant masses, abnormal calcifications, or other abnormalities. MM/MM tomosynthesis screening BI IMPRESSION: No mammographic evidence of malignancy. ASSESSMENT: BI-RADS BI-RADS 2 - Benign Findings RECOMMENDATION: Routine annual mammography screening. 1 year F/U This examination should not preclude the clinical evaluation of a suspicious palpable abnormality. This patient's information was entered into a reminder system with a target due date for their next mammogram. Electronically signed by: Joelle Adams DO 04/08/2025 08:39 AM EDT Dictated By: Joelle Adams DO Signed By: <Electronically signed by Joelle Adams DO in OV> 04/08/25 0839 DD/ 08 TD/TT: 03/26/25 08 Prop Drawer: [facility] [address] [place] [address] Mammography Report Signed Patient: Stevenson Jimenez MR#: [id number] : 1965 Acct:[id number] Age/Sex: 59 / F ADM Date: 03/26/25 Loc: HO.MAMMO Attending Dr: Hawk Cunningham MD Ordering Physician: Hawk Cunningham MD Results: 2Benign Findings Date of Service: 03/26/25 Follow Up: 1 Year From [facility] Mammogram Procedure(s): MM tomosynthesis screening BI Accession Number(s): [id number] cc: Hawk Cunningham MD EXAMINATION: MM SCREENING DIGITAL BREAST TOMOSYNTHESIS, BILATERAL CLINICAL INFORMATION: Screening. Asymptomatic. COMPARISON: Mammography: Compari son is made with available priors TECHNIQUE: Digital breast mammography with tomosynthesis is performed in both the craniocaudal and mediolateral oblique views along with computer-aided detection (CAD). FINDINGS: The breasts are heterogeneously dense, which may obscure small masses (ACR BI-RADS breast composition Category c). Bilateral scattered asymmetries are stable. There are no significant masses, abnormal calcifications, or other abnormalities. MM/MM tomosynthesis screening BI IMPRESSION: No mammographic evidence of malignancy. ASSESSMENT: BI-RADS BI-RADS 2 - Benign Findings RECOMMENDATION: Routine annual mammography screening. 1 year F/U This examination rony uld not preclude the clinical evaluation of a suspicious palpable abnormality. This patient's information was entered into a reminder system with a target due date for their next mammogram. Electronically ruiz d by: Joelle Adams DO 04/08/2025 08:39 AM EDT RP Dictated By: Joelle Adams DO Signed By: <Electronically signed by Joelle Adams DO in OV> 04/08/25838 DD/ 9 TD/TT: 03/26/25819 Prop Drawer: MAMMOGRAM DIGITAL BILATERAL SCREEN Reviewed date:04/10/2025 11:09:39 AM Interpretation:undefined Performing Lab: Notes/Report: undefined Reason For Referral Reason evaluate and treatme nt severe sciatica Diagnosis 1 Sciatica, unspecifie d laterality (M54.30) Referral Organization Hawk Cunningham III, MD Referring Provider First Name Hawk Referring Provider Last Name Marisa Referring Provider Speciality Internal M edicine Referred Provider [facility] Referred Provider Specialty Physical Med icine General [...] MOUTH EVERY DAY FOR 90 DAYS Active Multivitamin - 1 tablet Orally Once a day Active Immunizations Vaccine Route Administration Date Status [...] Problem Status W/U Status Risk Notes Problem [id number] Obesity (BMI 30.0-34.9) (E66.9) Active confirmed She has lost weight. We discussed diet and nutrition and made a plan to lose further weight loss. Problem 99573235 Other chronic pain (G89.29) Active confirmed She has chroni c intermittent back pain which is now improving. No change in her regimen was necessary today. Problem 86852531 Essential hypertension (I10) Active confirmed Her blood pressure has been stable and no change was made. Problem 86965436 Sciatica, unspecified laterality (M54.30) Active confirmed Problem 024263105 Environmental allergies (Z91.09) Active confirmed She has [...] lipids and weight and blood pressure. Problem 36474030 Sciatica of righ t side (M54.31) Active [...] her cyclobenzaprine . She was referred for [facility] for rehabilitation medicine. 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 Problem 906073227 Left lower quadrant abdominal pain (R10.32) Active confirmed Problem 175640935 H/O hysterectomy for benign disease (Z90.710) Active confirmed I have ask ed her to ask the weatherization administrator whom she will see next month to clarify her menopausal status. Problem 540236237 Gastroesophageal reflux disease with esophagitis without hemorrhage (K21.00) Active confirmed Her GERD is well controlled with current medications, which were continued. Problem 733599952 Family history o f ischemic heart disease (Z82.49) Active confirmed A treadmill stress test has been ordered at her request. Vital Signs Heart Rate 74 /min 04/16/2025 Temperature 97.1 degrees Fahrenheit 04/16/2025 Blood pressure diastolic 82 mm Hg 04/16/2025 Height 62 in 04/16/2025 Blood pressure systolic 164 mm Hg 04/16/2025 Weight 200 lbs 04/16/2025 BMI 36.58 kg/m2 04/16/2025 Encounters Encounter Location Date Provider Diagnosis Hawk Cunningham III, MD [address] [place] [address] [place] [address] 08/14/2024 Hawk Cunningham Sciatica of right si de M54.31 ; Obesity (BMI 30.0-34.9) E66.9 ; Environmental allergies Z91.09 and Hyperlipidemia, unspecified hyperlipidemia type E78.5 Hawk Cunningham III, MD [address] [place] [address] [place] [address] 08/21/2024 Hawk Cunningham Lumbar radiculopathy M54.16 ; Obesity (BMI 30.0-34.9) E66.9 ; Hyperlipidemia, unspecified hyperlipidemia type E78.5 ; Environmental allergies Z91.09 and Gastroesophageal reflux disease with esophagitis without hemorrhage K21.00 Hawk Cunningham III, MD [address] [place] [address] [address] [place] [address] 04/16/2025 Hawk Cunningham Left lower quadrant abdominal pain R10.32 ; Obesity (BMI 30.0-34.9) E66.9 ; Gastroesophageal reflux disease with esophagitis without hemorrhage K21.00 ; Essential hypertension I10 ; H/O hysterectomy for benign disease Z90.710 ; Hyperlipidemia, unspecified hyperlipidemia type E78.5 ; Sciatica of right side M54.31 ; Family history of ischemic heart disease Z82.49 and Osteopenia after menopause M81.0 Hawk Cunningham III, MD [address] [place] [address] [address] [place] [phone] 2024 Hawk Cunningham Assessments Encounter Date Diagnosis (ICD Code) Assessment Notes T reatment Notes Treatment Clinical Notes 08/14/2024 Obesity (BMI 30.0-34.9) (ICD-10 - E66.9) [...] take her cyclobenzaprine. She was referred for [facility] spine and sports for rehabilitation medicine. 08/21/2024 [...] instructed to call me if things worsen. 04/16/2025 Obesity (BMI 30.0-34.9) (ICD-10 - E66.9) She has lost weight. We discussed diet and nutrition and made a plan to lose further weight loss. 04/16/2025 Left lower quadrant abdominal pain (ICD-10 - R10.32) 08/14/2024 Environmental allergies (ICD-10 - Z91.09) She [...] lipids and weight and blood pressure. 04/16/2025 Gastroesophageal reflux disease with esophagitis without hemorrhage (ICD-10 - K21.00) Her GERD is well controlled with current medications, which were continued. 08/14/2024 Hyperlipidemia, unspecified hyperlipidemia type (ICD-10 - [...] spring and we will deal with that. 04/16/2025 Essential hypertensi on (ICD-10 - I10) Her blood pressure has been stable and no change was made. 08/21/2024 Gastroesophageal reflux disease with esophagitis without hemorrhage (ICD-10 - K21.00) She will use a combination of liquid antacid and omeprazole. 04/16/2025 H/O hysterectomy for benign disease (ICD-10 - Z90.710) I have asked her to ask the weatherization administrator whom she will see next month to [...] take her cyclobenzaprine. She was referred for [facility] spine and sports for rehabilitation medicine. 04/16/2025 Family history of ischemic heart disease (ICD-10 - Z82.49) A treadmill stress test has been ordered at her request. 04/16/2025 Osteopenia after menopause (ICD-10 - M81.0) She will continue on vitamin D as needed as well as 1 g of calcium carbonate daily. Plan Of Treatment Pending Test Test Name Order Date PROFILE, FASTING (COMPREHENSIVE METABOLI C) 12/31/2021 PROFILE, FASTING (COMPREHENSIVE METABOLI C) 04/16/2025 PROFILE, FASTING (COMPREHENSIVE METABOLI C) 03/18/2020 PROFILE, FASTING (COMPREHENSIVE METABOLI C) 03/14/2023 PROFILE, FASTING (COMPREHENSIVE METABOLI C) 03/16/2021 PROFILE, FASTING (COMPREHENSIVE METABOLI C) 09/16/2022 PROFILE, FASTING (COMPREHENSIVE METABOLI C) 07/01/2020 PROFILE, FASTING (COMPREHENSIVE METABOLI C) 04/13/2024 HEMOGLOBIN A1C (GLYCOHEMOGLOBIN) 021 LIPID PANEL 07/01/2020 LIPID PANEL 12/31/2021 LIPID PANEL 03/18/2020 LIPID PANEL 03/14/2023 LIPID PANEL 03/16/2021 CBC w DIFF 07/01/2020 CBC w DIFF 04/16/2025 CBC w DIFF 12/31/2021 CBC w DIFF 03/18/2020 CBC w DIFF 03/14/2023 CBC w DIFF 03/16/2021 CBC w DIFF 09/16/2022 SED RATE (ESR) 04/16/2025 US ABD 04/16/2025 CBC WITH AUTO DIFF 04/13/2024 Lipid Panel 09/16/2022 Lipid Panel 04/16/2025 MM tomosynthesis screening BI 03/26/2025 Next Appt Details Provider Name:Hawk Cunningham, 04/26/2025 10:45:00 AM, [address], [place], [address], Provider Name:Hawk Cunningham, 04/18/2026 09:00:00 AM, [address] [place] [address] [address], [place], [phone], Insurance Providers Payer Name Payer Address Payer Phone Subscriber Number Group Number Insured Name Patient Relationship to Insured Coverage Start Date Coverage End Date [facility] [address] [facility] [address] [facility] [place] [id number] [phone] [id number] Val Jimenez Self - patient is the insured Medical (General) History Medical History History ICD Code hysterectomy 2014 dysfunction uterine bleeding 2 para 2 environmental allergies obesity GERD Costochondritis 2022 Hyperlipidemia Elevated TSH Surgical History Surgery Date(Month/Year) No history colonoscopy at 02/17/2023 root canal 08/2021 tubal ligation 1985 both Hysterectomy 2014 Hospitalization History Reason Date(Month/Year) No history
--- OUTSIDE RECORDS SUMMARY | 2025-04-17 06:54 | XMS_ITS | Clinical Summary ---
Author Organization [facility] Address [address] [place] [address] Phone Care Team Providers Care Burnisher And Bumper Name Role Phone Hawk Cunningham MD Primary Care Provider [phone] Allergies No known active allergies Medications cholecalciferol [...] Panel) 08/21/2022 Colorectal Cancer Screening: Colonoscopy 08/21/2022 HIV Screening 08/21/2022 Hepatitis C Screening 08/21/2022 Social Influencers of Health Screening 08/21/2022 COVID-19 Vaccine (4 - 2023-2 5 season) 2024 01/12/2022, 08/27/2021, 08/20/2021 RSV Immunization Adult Patients (1 - Risk 60-74 years 1-dose series) 2024 Depression Screening 09/19/2024 Influenza Vaccine (#1) 2025 3, 05/20/2022, 08/20/2021 [...] Most Recently Relevant to Health Maintenance Insurance [facility] [address] [place] [address] Care Teams Burnisher And Bumper Relationship Specialty Start Date End Date Hawk Cunningham MD [address] [place] [id number] PCP - General 04/15/23
[2025-04-17 07:08] LABS: MANUAL DIFF FLAG NO
[2025-04-17 07:45] LABS: Hematocrit 39.9 % (37.0-47.0); Hemoglobin 13.4 g/dl (12.0-16.0); Imm Gran Abs Auto 0.02 X10*3/uL (0.00-0.03); Imm Gran Pct Auto 0.4 % (0.0-0.4); Lymphocytes Absolute Auto 1.8 X10*3/uL (1.2-4.9); Mean Corpuscular HGB Conc 33.6 g/dl (31.0-35.0); Mean Corpuscular Hemoglobin 31.6 pg (27.0-33.0); Mean Corpuscular Volume 94.1 fL (80.0-98.0); NRBC Abs Auto 0.000 X10*3/uL (0.0-0.012); NRBC Pct Auto 0.0 /100WBC (0.0-0.2); Platelet Count 255 X10*3/uL (160-400); Red Blood Count 4.24 X10*6/uL (4.20-5.50); White Blood Count 5.1 X10*3/uL (4.8-10.8)
[2025-04-17 08:19] LABS: Alanine Aminotransferase 44 U/L (0-31); Albumin Level 4.8 g/dL (3.5-5.0); Alkaline Phosphatase 84 U/L (39-117); Anion Gap 14 (12-20); Aspartate Amino Transferase 34 U/L (5-31); Blood Urea Nitrogen 17 mg/dL (9-16); Calcium 9.4 mg/dL (8.4-10.2); Carbon Dioxide 28 mmol/L (22-29); Chloride 107 mmol/L (96-108); Cholesterol 247 mg/dL (<200); Estimated Glomerular Filt Rate 56; HDL Cholesterol 34 mg/dL (>40); Potassium 3.6 mmol/L (3.3-5.1); Sodium 145 mmol/L (135-145); Total Protein 7.7 g/dL (6.5-8.0); Triglycerides 175 mg/dL (<150)
== END 2025-04-17 06:53 | disposition home or self-care (01) ==
LOC: HO.US 06:52
PROVIDERS: PCP Internal Medicine Medical Oncology; Visit Provider Internal Medicine Medical Oncology
DX: R10.32 Left lower quadrant pain (principal); E66.9 Obesity, unspecified; K21.00 Gastro-esophageal reflux disease with esophagitis, without bleeding; I10 Essential (primary) hypertension
CPT/HCPCS: 36415; 76700; 80053; 80061; 85025; 85652

== ENCOUNTER → 2025-04-17 07:10 | Outpatient (BNV) | payer OTHER, SELFPAY | PROVIDERS: PCP Internal Medicine Medical Oncology; Visit Provider Radiology Diagnostic Radiology | DX: R16.0 Hepatomegaly, not elsewhere classified (principal) | CPT/HCPCS: 76700 ==

== ENCOUNTER 2025-06-20 14:18 | Outpatient (REF) | payer OTHER, SELFPAY ==
--- OUTSIDE RECORDS SUMMARY | 2024-08-21 12:30 | XMS_ITS ---
Author Organization Hawk Cunningham III, MD Address [address] [place] [address] Care Team Providers Care Heel Molder Name Role Phone Dr. Hawk Cunningham III Primary Care Provider Allergies Allergen (clinical drug ingredient) Drug/Non Drug Allergy documented on EMR Reaction Allergy Type Onset Date Status Seasonale Unknown Drug Allergy Active REASON FOR VISIT Lumbar radiculopathy, Left sciatica to mid calf, Obesity, Hyperlipidemia, Hypertension, GERD Medications Medication SIG (Take, Route, Frequency, Duration) Notes Start Date End Date Status Claritin 10 MG 1 tablet Orally Once a day Active Multivitamin - 1 tablet Orally Once a day Active Terbinafine HCl 1 % 1 application Externally Once a day 05/26/2023 Active Albuterol Sulfate HFA 108 (90 Base) MCG/ACT 1 puff as needed Inhalation every 4 hrs 05/26/2023 Active dexAMETHasone 2 MG 1 tablet Orally every 12 hrs 08/14/2024 Active Albuterol Sulfate HFA 108 (90 Base) MCG/ACT 1 puff Inhalation every 4 hrs disp one inhaler 2024 Active Metoprolol Succinate ER 50 MG TAKE 1 TABLET BY MOUTH EVERY DAY FOR 90 DAYS Active Vitamin D 50 MCG (2000 UT) 1 tablet Orally Once a day Active Social History Tobacco Use: Social History Observation Description Date Details (start date - stop date) Never Smoker NA - NA Sex Assigned At : Social History Observation Description Sex Assigned At Female Tobacco Use/Smoking Question Answer Notes Patient is a nonsmoker Additional Findings: Tobacco Non-User Aggressive non-smoker Vital Signs Height 62 in 08/21/2024 Weight 206 lbs 08/21/2024 BMI 37.67 kg/m2 08/21/2024 Encounters Encounter Location Date Provider Diagnosis Hawk Cunningham III, MD [address] [place] [address] [address], [place] [id number] 08/21/2024 Hawk Cunningham Lumbar radiculopathy M54.16 ; Obesity (BMI 30.0-34.9) E66.9 ; Hyperlipidemia, unspecified hyperlipidemia type E78.5 ; Environmental allergies Z91.09 and Gastroesophageal reflux disease with esophagitis without hemorrhage K21.00 Assessments Encounter Date Diagnosis (ICD Code) Assessment Notes T reatment Notes Treatment Clinical Notes 08/21/2024 Lumbar radiculopathy (ICD-10 - M54.16) Her pain is much improved and she tolerated the dexamethasone without side effects. She will pursue light activity for well and gradually increase back to normal. She was instructed to call me if things worsen. 08/21/2024 Obesity (BMI 30.0-34.9) (ICD-10 - E66.9) Her body mass index is 37. Her weight has been stable since her last visit. We discussed consequences of obesity on various weight loss strategies. We discussed diet and nutrition. We made a plan to lose weight at a rate of one half of a pound per week through a diet restricted in fat calories and sodium combined with regular physical activity. 08/21/2024 Hyperlipidemia, unspecified hyperlipidemia type (ICD-10 - E78.5) Her total cholesterol is 239. We have discussed diet and nutrition today. We have reviewed her cardiovascular risk factors. We have elected to try aggressive weight loss to reduce her lipids and weight and blood pressure. 08/21/2024 Environmental allergies (ICD-10 - Z91.09) She has had no recent complaints of allergy now that it is winter. She expects to have allergies to pollen this coming spring and we will deal with that. 08/21/2024 Gastroesophageal reflux disease with esophagitis without hemorrhage (ICD-10 - K21.00) She will use a combination of liquid antacid and omeprazole. Plan Of Treatment Medication Medication Name Sig Start Date Stop Date Notes Claritin 10 MG 1 tablet Orally Once a day Multivitamin - 1 tablet Orally Once a day Terbinafine HCl 1 % 1 application Externally Once a day 05/26/2023 Albuterol Sulfate HFA 108 (90 Base) MCG/ACT 1 puff as needed Inhalation every 4 hrs 05/26/2023 dexAMETHasone 2 MG 1 tablet Orally ever y 12 hrs 08/14/2024 Albuterol Sulfate HFA 108 (90 Base) MCG/ACT 1 puff Inhalation every 4 hrs 2024 disp one inhaler Metoprolol Succinate ER 50 MG TAKE 1 TABLET BY MOUTH EVERY DAY FOR 90 DAYS Vitamin D 50 MCG (2000 UT) 1 tablet Orally Once a day Next Appt Details Follow Up: As Scheduled, Evelyne son: OV Provider Name:Hawk Cunningham , 04/18/2026 09:00:00 AM, [address] [place] [address] DR, [address], [place], [phone], Progress Notes * Val JIMENEZ IDOB: 4 (59 yo F)Acc No.[id number]:08/21/2024 Patient: Val CINTRON I Provider: Jd Cunningham MD :1965 A ge:59 Y S ex:Female Date:08/21/2024 Address:[address] [place], [place] [address]LINDA Stacie [id number] Subjective: * Chief Complaints: * L umbar radiculopathyLeft sciatica to mid calfObesityHyperlipidemiaHypertensionGERD * HPI: * : This telehealth visit took place over 15 minutes with the patient at home and me in my office. She gave consent for billing. She recently developed severe lumbar back pain on the left side that radiated down her left leg to mid calf. When she came to the office her reflexes were normal as was her motor strength. The diagnosis was lumbbar radiculopathy. She was treated with heat and rest and ibuprofen and a course of dexamethasone.? Today she says she is feeling much better and has resumed running and can walk without pain. She was encouraged to do no heavy lifting and to take it very easy for a while. Follow-up visit was arranged. Telehealth L ocation of provider rendering services: { ...} [address] [facility] [address] L ocation of patient: mayelin caraess listed in demographics for today's visit P atient identification confirmed using: N felipa, T elehealth method: T elephone only. Patient not visible to care provider. C onsent: P atient verbally consented to treatment, Patient verbally consented to billing insurance company, Patient informed of any privacy concerns related to method of visit T otakeyanna time spent with patient (mins) 1 5 * ROS: G eneral/Constitutional: pain L ow back pain much improved. C hills d enies.?Fatigue a dmits. F ever d enies. E NT: Decreased hearing d enies. R espiratory: Cough d enies. C ardiovascular: Chest pain with exertion d enies. D yspnea on exertion?denies. S hortness of breath d enies. G astrointestinal: Constipation o ccasional. D ecreased appetite d enies. D iarrhea d enies. H eartburn d enies. N ausea d enies. R ectal bleeding d enies. V omiting d enies. H ematology: bruising d enies. p etechiae d enies. S wollen glands n one have been noted. G enitourinary: Frequent urination d enies. M usculoskeletal: Muscle aches d enies. P ainful joints d enies. S ciatica d enies. W eakness d enies. S kin: Itching d enies. R eric d enies. S kin lesion(s)?denies. N eurologic: Difficulty speaking d enies. D izziness d enies.?Headache d enies. L ow back pain d enies. P sychiatric: Depressed mood d enies. * Medical History: * Surgical History: H ysterectomy [id number] both tubal ligation 1985root canal olonoscopy at 02/17/2023No history * Hospitalization/Major Diagno stic Procedure: N o history * Family History: F ather: alive 75 yrs, Diabetes mellitus, coronary artery disease, diagnosed with DM, CVD.?Mother: alive 73 yrs, Diabetes mellitus, diagnosed with DM. 3 brother(s) , 4 sister(s) - healthy. 2 son(s) , 1 daughter(s) - healthy. . Her father has had a stroke and has a history of coronary artery disease and diabetes. Her mother is alive with diabetes. She has 3 healthy children. A sister of cancer but there is no additional information available. * Social History: T obacco Use: T obacco Use/Smoking P herve is a n onsmoker A dditional Findings: Tobacco Non-User A ggressive non-smoker S he has been to [place] for many years. He has 2 healthy children and a daughter. she is currently employed at a school. She had a colonoscopy 02/17/2023 normal . her mammogram is going to be done on 03/18/2023 at . * Medications: T akingAlbuterol Sulfate HFA 108 (90 Base) MCG/ACT Aerosol Solution 1 puff Inhalation every 4 hrs , Notes to Pharmacist: disp one inhalerMetoprolol Succinate ER 50 MG Tablet Extended Release 24 Hour TAKE 1 TABLET BY MOUTH EVERY DAY FOR 90 DAYS Vitamin D 50 MCG (2000 UT) Tablet 1 tablet Orally Once a day Claritin 10 MG Tablet 1 tablet Orally Once a day Multivitamin - Tablet 1 tablet Orally Once a day Terbinafine HCl 1 % Cream 1 application Externally Once a day Albuterol Sulfate HFA 108 (90 Base) MCG/ACT Aerosol Solution 1 puff as needed Inhalation every 4 hrs dexAMETHasone 2 MG Tablet 1 tablet Orally every 12 hrs Medication List reviewed and reconciled with the patientTaking Albuterol Sulfate HFA 108 (90 Base) MCG/ACT Aerosol Solution 1 puff Inhalation every 4 hrs , Notes to Pharmacist: disp one inhalerTaking Metoprolol Succinate ER 50 MG Tablet Extended Release 24 Hour TAKE 1 TABLET BY MOUTH EVERY DAY FOR 90 DAYS Taking Vitamin D 50 MCG (2000 UT) Tablet 1 tablet Orally Once a day Taking Claritin 10 MG Tablet 1 tablet Orally Once a day Taking Multivitamin - Tablet 1 tablet Orally Once a day Taking Terbinafine HCl 1 % Cream 1 application Externally Once a day Taking Albuterol Sulfate HFA 108 (90 Base) MCG/ACT Aerosol Solution 1 puff as needed Inhalation every 4 hrs Taking dexAMETHasone 2 MG Tablet 1 tablet Orally every 12 hrs Medication List reviewed and reconciled with the patient * Allergies: S easonale: Allergyno[Allergies Verified] Objective: * Vitals: H t: 62, Wt: 206, BMI:37.67, Ht-cm: 157.48, Wt-k.44. * P ast Orders: Lab:Complete Blood Count Aut o Diff * Collection Date 08/07/2024 04/13/2024 05/19/2023 Collection Time 10:29 AM 11:02 AM 11:57 AM Order Date 08/07/2024 04/13/2024 05/19/2023 White Blood Count 5.2 (Ref Range: 4.8-10.8 X10*3/uL) 5.5 (Ref Range: 4.8-10.8 X10*3/uL) 4.7 L (Ref Range: 4.8-10.8 X10*3/uL) Red Blood Count 4.44 (Ref Range: 4.20-5.50 X10*6/uL) 4.17 L (Ref Range: 4.20-5.50 X10*6/uL) 4.15 L (Ref Range: 4.20-5.50 X10*6/uL) Hemoglobin 14.0 (Ref Range: 12.0-16.0 g/dl) 13.6 (Ref Range: 12.0-16.0 g/dl) 13.0 (Ref Range: 12.0-16.0 g/dl) Hematocrit 42.4 (Ref Range: 37.0-47.0 %) 40.0 (Ref Range: 37.0-47.0 %) 39.7 (Ref Range: 37.0-47.0 %) Mean Corpuscular Volume 95.5 (Ref Range: 80.0-98.0 fL) 95.9 (Ref Range: 80.0-98.0 fL) 95.7 (Ref Range: 80.0-98.0 fL) Mean Corpuscular Hemoglobin 31.5 (Ref Range: 27.0-33.0 pg) 32.6 (Ref Range: 27.0-33.0 pg) 31.3 (Ref Range: 27.0-33.0 pg) Mean Corpuscular HGB Conc 33.0 (Ref Range: 31.0-35.0 g/dl) 34.0 (Ref Range: 31.0-35.0 g/dl) 32.7 (Ref Range: 31.0-35.0 g/dl) Red Cell Distribution Width 12.6 (Ref Range: 11.0-16.0 %) 12.6 (Ref Range: 11.0-16.0 %) 12.5 (Ref Range: 11.0-16.0 %) Platelet Count 256 (Ref Range: 160-400 X10*3/uL) 244 (Ref Range: 160-400 X10*3/uL) 232 (Ref Range: 160-400 X10*3/uL) Mean Platelet Volume 12.0 (Ref Range: 9.4-12.3 fL) 11.6 (Ref Range: 9.4-12.3 fL) 12.5 H (Ref Range: 9.4-12.3 fL) Neutrophils Percent Auto 59.1 (Ref Range: 45-73 %) 62.5 (Ref Range: 45-73 %) 58.0 (Ref Range: 45-73 %) Imm Gran Pct Auto 1.0 H (Ref Range: 0.0-0.4 %) 0.7 H (Ref Range: 0.0-0.4 %) 0.6 H (Ref Range: 0.0-0.4 %) Lymphocytes Percent Auto 27.8 (Ref Range: 20-40 %) 25.4 (Ref Range: 20-40 %) 30.1 (Ref Range: 20-40 %) Monocytes Percent Auto 8.0 (Ref Range: 2-11 %) 8.0 (Ref Range: 2-11 %) 8.1 (Ref Range: 2-11 %) Eosinophils Percent Auto 3.1 (Ref Range: 0-4 %) 2.9 (Ref Range: 0-4 %) 2.1 (Ref Range: 0-4 %) Basophils Percent Auto 1.0 (Ref Range: 0-2 %) 0.5 (Ref Range: 0-2 %) 1.1 (Ref Range: 0-2 %) NRBC Pct Auto 0.0 (Ref Range: 0.0-0.2 /100WBC) 0.0 (Ref Range: 0.0-0.2 /100WBC) 0.0 (Ref Range: 0.0-0.2 /100WBC) Neutrophils Absolute Auto 3.1 (Ref Range: 2.0-8.3 x10*3/uL) 3.4 (Ref Range: 2.0-8.3 x10*3/uL) 2.7 (Ref Range: 2.0-8.3 x10*3/uL) Imm Gran Abs Auto 0.05 H (Ref Range: 0.00-0.03 X10*3/uL) 0.04 H (Ref Range: 0.00-0.03 X10*3/uL) 0.03 (Ref Range: 0.00-0.03 X10*3/uL) Lymphocytes Absolute Auto 1.4 (Ref Range: 1.2-4.9 X10*3/uL) 1.4 (Ref Range: 1.2-4.9 X10*3/uL) 1.4 (Ref Range: 1.2-4.9 X10*3/uL) Monocytes Absolute Auto 0.4 (Ref Range: 0.1-1.2 X10*3/uL) 0.4 (Ref Range: 0.1-1.2 X10*3/uL) 0.4 (Ref Range: 0.1-1.2 X10*3/uL) Eosinophils Absolute Auto 0.2 (Ref Range: 0.0-0.4 X10*3/uL) 0.2 (Ref Range: 0.0-0.4 X10*3/uL) 0.1 (Ref Range: 0.0-0.4 X10*3/uL) Basophils Absolute Auto 0.1 (Ref Range: 0.0-0.2 X10*3/uL) 0.0 (Ref Range: 0.0-0.2 X10*3/uL) 0.1 (Ref Range: 0.0-0.2 X10*3/uL) NRBC Abs Auto 0.000 (Ref Range: 0.0-0.012 X10*3/uL) 0.000 (Ref Range: 0.0-0.012 X10*3/uL) 0.000 (Ref Range: 0.0-0.012 X10*3/uL) * Lab:Lipid Panel * Collection Date 08/07/2024 04/13/2024 05/19/2023 Collection Time 10:29 AM 11:02 AM 11:57 AM Order Date 08/07/2024 04/13/2024 05/19/2023 Triglycerides 142 (Ref Range: <150 mg/dL) 133 (Ref Range: <150 mg/dL) 129 (Ref Range: <150 mg/dL) Cholesterol 239 H (Ref Range: <200 mg/dL) 238 H (Ref Range: <200 mg/dL) 237 H (Ref Range: <200 mg/dL) LDL Cholesterol Calculated 166 H (Ref Range: <100 mg/dL) 172 H (Ref Range: <100 mg/dL) 170 H (Ref Range: <100 mg/dL) HDL Cholesterol 45 (Ref Range: >40 mg/dL) 40 L (Ref Range: >40 mg/dL) 42 (Ref Range: >40 mg/dL) * Lab:Comprehensive [place]. Pane l Fast * Collection Date 08/07/2024 04/13/2024 03/04/2023 Collection Time 10:29 AM 11:02 AM 08:44 AM Order Date 08/07/2024 04/13/2024 03/04/2023 Sodium 142 (Ref Range: 135-145 mmol/L) 144 (Ref Range: 135-145 mmol/L) 143 (Ref Range: 135-145 mmol/L) Bilirubin Total 0.8 (Ref Range: 0.0-1.0 mg/dL) 0.6 (Ref Range: 0.0-1.0 mg/dL) 0.9 (Ref Range: 0.0-1.0 mg/dL) Aspartate Amino Transferase 33 H (Ref Range: 5-31 U/L) 33 H (Ref Range: 5-31 U/L) 20 (Ref Range: 5-31 U/L) Alanine Aminotransferase 48 H (Ref Range: 0-31 U/L) 47 H (Ref Range: 0-31 U/L) 26 (Ref Range: 0-31 U/L) Total Protein 7.9 (Ref Range: 6.5-8.0 g/dL) 7.8 (Ref Range: 6.5-8.0 g/dL) 7.7 (Ref Range: 6.5-8.0 g/dL) Albumin Level 4.6 (Ref Range: 3.5-5.0 g/dL) 4.6 (Ref Range: 3.5-5.0 g/dL) 4.4 (Ref Range: 3.5-5.0 g/dL) Alkaline Phosphatase 83 (Ref Range: 39-117 U/L) 81 (Ref Range: 39-117 U/L) 73 (Ref Range: 39-117 U/L) Potassium 3.9 (Ref Range: 3.3-5.1 mmol/L) 4.3 (Ref Range: 3.3-5.1 mmol/L) 3.5 (Ref Range: 3.3-5.1 mmol/L) Chloride 107 (Ref Range: 96-108 mmol/L) 106 (Ref Range: 96-108 mmol/L) 108 (Ref Range: 96-108 mmol/L) Carbon Dioxide 30 H (Ref Range: 22-29 mmol/L) 28 (Ref Range: 22-29 mmol/L) 23 (Ref Range: 22-29 mmol/L) Anion Gap 9 L (Ref Range: 12-20) 14 (Ref Range: 12-20) 16 (Ref Range: 12-20) Blood Urea Nitrogen 17 H (Ref Range: 9-16 mg/dL) 16 (Ref Range: 9-16 mg/dL) 14 (Ref Range: 9-16 mg/dL) Creatinine 0.91 (Ref Range: 0.5-1.4 mg/dL) 0.85 (Ref Range: 0.5-1.4 mg/dL) 0.87 (Ref Range: 0.5-1.4 mg/dL) Estimated Glomerular Filt Rate > 60 > 60 > 60 Glucose Fasting 133 H (Ref Range: 60-99 mg/dL) 117 H (Ref Range: 60-99 mg/dL) 109 H (Ref Range: 60-99 mg/dL) Calcium 9.9 (Ref Range: 8.4-10.2 mg/dL) 9.5 (Ref Range: 8.4-10.2 mg/dL) 9.9 (Ref Range: 8.4-10.2 mg/dL) Assessment: * Assessment: 1. L umbar radiculopathy - M54.16 (Primary) N otes :Her pain is much improved and she tolerated the dexamethasone without side effects. She will pursue light activity for well and gradually increase back to normal. She was instructed to call me if things worsen. 2 . O besity (BMI 30.0-34.9) - E66.9 N otes :Her body mass index is 37. Her weight has been stable since her last visit. We discussed consequences of obesity on various weight loss strategies. We discussed diet and nutrition. We made a plan to lose weight at a rate of one half of a pound per week through a diet restricted in fat calories and sodium combined with regular physical activity. 3 . H yperlipidemia, unspecified hyperlipidemia type - E78.5 N otes :Her total cholesterol is 239. We have discussed diet and nutrition today. We have reviewed her cardiovascular risk factors. We have elected to try aggressive weight loss to reduce her lipids and weight and blood pressure. 4 . E nvironmental allergies - Z91.09 N otes :She has had no recent complaints of allergy now that it is winter. She expects to have allergies to pollen this coming spring and we will deal with that. 5 . G astroesophageal reflux disease with esophagitis without hemorrhage - K21.00 N otes :She will use a combination of liquid antacid and omeprazole. Plan: * Treatment: * Procedure Codes: 9 [id number] PHONE E/M BY PHYS 11-20 MIN * Preventive Medicine: Counseling: C are goal follow-up plan: Counseling for abnormal BMI given Y es Above Normal BMI Follow-up D ietary management education, guidance, and counseling, Dietary needs education * Follow Up: A s Scheduled (Reason: OV) * Images: * Sign off status: Completed true * Provider: Jd Cunningham MD Date: 10/22/2023 Generated for El gonsalez/Flynn/Arik on: 03:56 PM EDT History and Physical Notes * HPI (History of Present Illness) Category Sub-Category Detail Notes [facility] {...} [address] [place] [address] [address] [place] [id number] Location of patient:: address listed in demographics for today's visit Patient identification confirmed using:: Name, Telehealth method:: Telephone only. Peggy ent not visible to care provider. Consent:: Patient verbally c onsented to treatment, Patient verbally consented to billing insurance company, Patient informed of any privacy concerns related to method of visit Total time spent with patient (mins): 15
--- OUTSIDE RECORDS SUMMARY | 2025-04-16 05:00 | XMS_ITS ---
Author Organization Hawk Cunningham III, MD Address [address] [place] [address] Care Team Providers Care Eligibility And Occupancy Interviewer Name Role Phone Dr. Hawk Cunningham III Primary Care Provider Allergies Allergen (clinical drug ingredient) Drug/Non Drug Allergy documented on EMR Reaction Allergy Type Onset Date Status Seasonale Unknown Drug Allergy Active Results Component Value Reference Range Notes Lipid Panel Reviewed date:04/26/2025 10:50:16 AM Interpretation: Performing Lab:[facility], [address] [place] [id number] Notes/Report: Triglycerides 175 <150 mg/dL Desirable Triglyceride: less than 150 mg/dL Borderline High Triglyceride 150-199 mg/dL High Triglyceride: 200-499 mg/dL Very High Triglyceride: greater than or equal to 5OO mg/dL Cholesterol 247 <200 mg/dL Desirable Cholesterol: less than 200 mg/dL Borderline High Cholesterol: 200-239 mg/dL High Cholesterol: greater than 239 mg/dL LDL Cholesterol Calculated 178 <100 mg/dL Desirable LDL: less than 100 mg/dL Near Optimal/Above Optimal LDL: 110-129 mg/dL Borderline High LDL: 130-159 mg/dL High LDL: 160-189 mg/dL Very High LDL: greater than or equal to 190 mg/dL HDL Cholesterol 34 >40 mg/dL Desirable HDL: greater than 40 mg/dL Note: This HDL assay may give artificially low results in patients with liver disease. REASON FOR VISIT Annual visit Medications Medication SIG (Take, Route, Frequency, Duration) Notes Start Date End Date Status Vitamin D 50 MCG (1999) 1 tablet Orally Once a day Active Claritin 10 MG 1 tablet Orally Once a day Active Multivitamin - 1 tablet Orally Once a day Active Albuterol Sulfate HFA 108 (90 Base) MCG/ACT 1 puff Inhalation every 4 hrs disp one inhaler 2024 Active Metoprolol Succinate ER 50 MG TAKE 1 TABLET BY MOUTH EVERY DAY FOR 90 DAYS Active Social History Tobacco Use: Social History Observation Description Date Details (start date - stop date) Never Smoker NA - NA Sex Assigned At : Social History Observation Description Sex Assigned At Female Tobacco Use/Smoking Question Answer Notes Patient is a nonsmoker Additional Findings: Tobacco Non-User Aggressive non-smoker Problems Problem Type SNOMED Code ICD Code Onset Dates Problem Status W/U Status Risk Notes Problem [id number] Left lower quadrant abdominal pain (R10.32) Active confirmed Vital Signs Temperature 97.1 degrees Fahrenheit 04/16/20 25 Blood pressure systolic 164 mm Hg 04/16/20 25 Blood pressure diastolic 82 mm Hg 025 Heart Rate 74 /min 04/16/2025 Height 62 in 04/16/2025 Weight 200 lbs 04/16/2025 BMI 36.58 kg/m2 04/16/2025 Encounters Encounter Location Date Provider Diagnosis Hawk Cunningham III, MD [address] [place] [address] [place] [address] 04/16/2025 Hawk Cunningham Left lower quadrant abdominal pain R10.32 ; Obesity (BMI 30.0-34.9) E66.9 ; Gastroesophageal reflux disease with esophagitis without hemorrhage K21.00 ; Essential hypertension I10 ; H/O hysterectomy for benign disease Z90.710 ; Hyperlipidemia, unspecified hyperlipidemia type E78.5 ; Sciatica of right side M54.31 ; Family history of ischemic heart disease Z82.49 and Osteopenia after menopause M81.0 Assessments Encounter Date Diagnosis (ICD Code) Assessment Notes T reatment Notes Treatment Clinical Notes 04/16/2025 Left lower quadrant abdominal pain (ICD-10 - R10.32) 04/16/2025 Obesity (BMI 30.0-34.9) (ICD-10 - E66.9) She has lost weight. We discussed diet and nutrition and made a plan to lose further weight loss. 04/16/2025 Gastroesophageal reflux disease with esophagitis without hemorrhage (ICD-10 - K21.00) Her GERD is well controlled with current medications, which were continued. 04/16/2025 Essential hypertensi on (ICD-10 - I10) Her blood pressure has been stable and no change was made. 04/16/2025 H/O hysterectomy for benign disease (ICD-10 - Z90.710) I have asked her to ask the newspaper carrier whom she will see next month to clarify her menopausal status. 04/16/2025 Hyperlipidemia, unspecified hyperlipidemia type (ICD-10 - E78.5) Her total cholesterol is 239. We have discussed diet and nutrition today. We have reviewed her cardiovascular risk factors. We have elected to try aggressive weight loss to reduce her lipids and weight and blood pressure. 04/16/2025 Sciatica of right si de (ICD-10 - [...] take her cyclobenzaprine. She was referred for [facility] for rehabilitation medicine. 04/16/2025 Family history of ischemic heart disease (ICD-10 - Z82.49) A treadmill stress test has been ordered at her request. 04/16/2025 Osteopenia after menopause (ICD-10 - M81.0) She will continue on vitamin D as needed as well as 1 g of calcium carbonate daily. Plan Of Treatment Medication Medication Name Sig Start Date Stop Date Notes Vitamin D 50 MCG (1999) 1 tablet Orally Once a day Claritin 10 MG 1 tablet Orally Once a day Multivitamin - 1 tablet Orally Once a day Albuterol Sulfate HFA 108 (90 Base) MCG/ACT 1 puff Inhalation every 4 hrs 2024 disp one inhaler Metoprolol Succinate ER 50 MG TAKE 1 TABLET BY MOUTH EVERY DAY FOR 90 DAYS Next Appt Details Follow Up: 10 days, Reason: OV review labs and US done at Provider Name:Hawk Cunningham , 04/18/2026 09:00:00 AM, [address] [place] [address] , [address], [place], [phone], Progress Notes * Val JIMENEZ IDOB: 4 (59 yo F)Acc No.[id number]:04/16/2025 Progress Notes Patient: Val CINTRON I Provider: Jd Cunningham MD :1965 A ge:59 Y S ex:Female Date:04/16/2025 Address:[address] [place] [address] [id number] Subjective: * Chief Complaints: * A nnual visit * HPI: D epression Screening: She returns to the office at the age of 59 for her annual visit. He had a negative mammogram March 26, 2025. She is not up-to-date with [facility] and was referred there for a visit for routine reproductive care. He has new left lower quadrant pain in her abdomen that radiates around to her back. His been present for 1 month. It is intermittent and not related to the heating or drinking. Her bowel movements and urination been normal. He describes it as a sharp pain. I have ordered an ultrasound of the abdomen to rule out diverticulitis or kidney stone or ovarian pathology. Her examination today was unremarkable. PHQ-9 L ittle interest or pleasure in doing things?Several days F eeling down, depressed, or hopeless N ot at all T rouble falling or staying asleep, or sleeping too much N ot at all F eeling tired or having little energy S everal days P oor appetite or overeating N ot at all F eeling bad about yourself or that you are a failure, or have let yourself or your family down N ot at all T rouble concentrating on things, such as reading the newspaper or watching television N ot at all M oving or speaking so slowly that other people could have noticed; or the opposite, being so fidgety or restless that you have been moving around a lot more than usual N ot at all T houghts that you would be better off or of hurting yourself in some way N ot at all T otal Score 2 I nterpretation M inimal Depression C OVID-19 Screening: Questions H ave you had any new onset fever, chills, cough, congestion, sore throat, shortness of breath, muscle aches? N o S BRENDAN Questions: SDOH Questions I n the past year have you been worried about losing your housing? N o I n the past year have you or any family members you live with been unable to get any of the following when it was really needed? Check all that apply: N one * ROS: G eneral/Constitutional: pain L eft lower quadrant of the abdomen that radiates front to back. C hills d enies. F atigue a dmits. F ever d enies. ? E NT: Decreased hearing d enies. R [...] P ainful joints d enies. S ciatica a ffecting the lower left side of the body. W eakness d enies. ? S kin: Itching d enies. R eric d enies. S kin lesion(s)?denies. N eurologic: Difficulty speaking d enies. D izziness d enies.?Headache d enies. L ow back pain d enies. P sychiatric: Depressed mood d enies. * Medical History: * Surgical History: H ysterectomy [id number] both tubal ligation 1985root canal olonoscopy at 02/17/2023No history * Hospitalization/Major Diagno stic Procedure: N o history * Family History: F ather: alive 75 yrs, Diabetes mellitus, coronary artery disease, diagnosed with CVD, DM.?Mother: alive 73 yrs, Diabetes mellitus, diagnosed with [...] 1 tablet Orally Once a day Taking Albuterol Sulfate HFA [...] Tablet 1 tablet Orally Once a day DiscontinuedTerbinafine HCl 1 % Cream 1 application Externally Once a day Albuterol Sulfate HFA 108 (90 Base) MCG/ACT Aerosol Solution 1 puff as needed Inhalation every 4 hrs dexAMETHasone 2 MG Tablet 1 tablet Orally every 12 hrs Medication List reviewed and reconciled with the patientDiscontinued Terbinafine HCl 1 % Cream 1 application Externally Once a day Discontinued Albuterol Sulfate HFA 108 (90 Base) MCG/ACT Aerosol Solution 1 puff as needed Inhalation every 4 hrs Discontinued dexAMETHasone 2 MG Tablet 1 tablet Orally every 12 hrs Medication List reviewed and reconciled with the patient * Allergies: S easonale: Allergyno[Allergies Verified] Objective: * Vitals: H t: 62, Wt: 200, BMI:36.58, BP: 164/82, HR: 74, Temp: 97.1, Ht-cm: 157.48, Wt-k.72. * Examination: G eneral Examination: GENERAL APPEARANCE: p leasant, well nourished, well developed, in no acute distress, calm and relaxed: obese: woman. HEAD: a traumatic, normocephalic. EYES: e angel, perrla, anicteric, conjugate. EARS: n ormal. NOSE: s eptum intact. ORAL CAVITY: n ormal, unremarkable. NECK/THYROID: n o jugular venous distention, no carotid bruit, thyroid normal. LYMPH NODES: n o enlarged lymph nodes,spleen normal. SKIN: n o suspicious lesions, anicteric. HEART: n o clicks, gallops, murmurs, or rubs, regular rhythm, S1, S2 normal, no s3, or vascular bruits. LUNGS: c lear to auscultation . BREASTS: no masses palpable bilaterally. ABDOMEN: b owel sounds normal, no ascites, no organomegaly, no mass: centripital obesity, No abnormalities in the lower quadrant. RECTAL EXAM: n ot examined. MUSCULOSKELETAL: e xtremities unremarkable, no clubbing, cyanosis or edema, Mild paravertebral muscle spasm. PERIPHERAL PULSES: n ormal. NEUROLOGIC: a lert and oriented, cranial nerves 2-12 grossly intact, deep tendon reflexes 2+ symmetrical, motor strength normal upper and lower extremities, sensory exam intact. PSYCH: a lert, oriented: good eye contact: cooperative with exam: cognitive function intact: speech clear: thought process logical, goal directed. ? Assessment: * Assessment: 1. L eft lower quadrant abdominal pain - R10.32 (Primary) S pecify :I have ordered an ultrasound and comprehensive blood work and referred her to [facility] for further evaluation. 2 . O besity (BMI 30.0-34.9) - E66.9 N otes :She has lost weight. We discussed diet and nutrition and made a plan to lose further weight loss. 3 . G astroesophageal reflux disease with esophagitis without hemorrhage - K21.00 N otes :Her GERD is well controlled with current medications, which were continued. 4 . E ssential hypertension - I10 N otes :Her blood pressure has been stable and no change was made. 5 . H /O hysterectomy for benign disease - Z90.710 N otes :I have asked her to ask the newspaper carrier whom she will see next month to clarify her menopausal status. 6 . H yperlipidemia, unspecified hyperlipidemia type - E78.5 N otes :Her total cholesterol is 239. We have discussed diet and nutrition today. We have reviewed her cardiovascular risk factors. We have elected to try aggressive weight loss to reduce her lipids and weight and blood pressure. 7 . S ciatica of right side - M54.31 N otes :The pain has been present for over 6 [...] take her cyclobenzaprine. She was referred for [facility] for rehabilitation medicine. 8 . F amily history of ischemic heart disease - Z82.49 N otes :A treadmill stress test has been ordered at her request. 9 . O steopenia after menopause - M81.0 N otes :She will continue on vitamin D as needed as well as 1 g of calcium carbonate daily. Plan: * Treatment: 2. O besity (BMI 30.0-34.9) L AB: PROFILE, FASTING (COMPREHENSIVE METABOLIC) L AB: CBC w DIFF L AB: SED RATE (ESR) L AB: Lipid Panel 3. G astroesophageal reflux disease with esophagitis without hemorrhage L AB: PROFILE, FASTING (COMPREHENSIVE METABOLIC) L AB: CBC w DIFF L AB: SED RATE (ESR) L AB: Lipid Panel 4. E ssential hypertension L AB: PROFILE, FASTING (COMPREHENSIVE METABOLIC) L AB: CBC w DIFF L AB: SED RATE (ESR) L AB: Lipid Panel 5. O thers Continue Albuterol Sulfate HFA Aerosol Solution, 108 (90 Base) MCG/ACT, 1 puff, Inhalation, every 4 hrs, Notes to Pharmacist: disp one inhaler; C ontinue Metoprolol Succinate ER Tablet Extended Release 24 Hour, 50 MG, TAKE 1 TABLET BY MOUTH EVERY DAY FOR 90 DAYS; C ontinue Vitamin D Tablet, 50 MCG (2000 UT), 1 tablet, Orally, Once a day; C ontinue Claritin Tablet, 10 MG, 1 tablet, Orally, Once a day; C ontinue Multivitamin Tablet, -, 1 tablet, Orally, Once a day. * Procedure Codes: * Preventive Medicine: Counseling: C are goal follow-up plan: Counseling for abnormal BMI given Y es Above Normal BMI Follow-up D ietary management education, guidance, and counseling * Follow Up: 1 0 days (Reason: OV review labs and US done at ) * Images: * Sign off status: Completed true * Provider: Jd Cunningham MD Date: 0 04/16/2025 Generated for El gonsalez/Flynn/Arik on: 03:56 PM EDT History and Physical Notes * HPI (History of Present Illness) Category Sub-Category Detail Notes Depression Screening PHQ-9 Little inte rest or pleasure in doing things: Several days Feeling down, depressed, or hopeless: No t at all Trouble falling or staying asleep, or sl eeping too much: Not at all Feeling tired or having little energy: S everal days Poor appetite or overeating: Not at all Feeling bad about yourself o r that you are a failure, or have let yourself or your family down: Not at all Trouble concentrating on thi ngs, such as reading the newspaper or watching television: Not at all Moving or speaking so slowly that other people could have noticed; or the opposite, being so fidgety or restless that you have been moving around a lot more than usual: Not at all Thoughts that you would be b otis off or of hurting yourself in some way: Not at all Total Score: 2 Interpretation: Minimal Depression COVID-19 Screening Questions Have you had any new onset fever, chills, cough, congestion, sore throat, shortness of breath, muscle aches?: No SDOH Questions SDOH Questions In the past year have you been worried about losing your housing?: No In the past year have you or any family members you live with been unable to get any of the following when it was really needed? Check all that apply:: None Examination Category Sub-Category Detail Notes General Examination GENERAL APPEARANCE: pleasant , well nourished, well developed, in no acute distress, calm and relaxed: obese: woman HEAD: atraumatic, normocep halic EYES: eomi, perrla, anicte leandra, conjugate EARS: normal NOSE: septum intact NECK/THYROID: no jugular venous di stention, no carotid bruit, thyroid normal HEART: no clicks, gallops, murmurs, or rubs, regular rhythm, S1, S2 normal, no s3, or vascular bruits LUNGS: clear to auscultatio n ABDOMEN: bowel sounds normal, no ascites, no organomegaly, no mass: centripital obesity, No abnormalities in the lower quadrant NEUROLOGIC: alert and oriented, cranial nerves 2-12 grossly intact, deep tendon reflexes 2+ symmetrical, motor strength normal upper and lower extremities, sensory exam intact SKIN: no suspicious lesion s, anicteric PERIPHERAL PULSES: normal BREASTS: no masses palpable b ilaterally MUSCULOSKELETAL: extremities unremark able, no clubbing, cyanosis or edema, Mild paravertebral muscle spasm LYMPH NODES: no enlarged lymph no adarsh,spleen normal RECTAL EXAM: not examined PSYCH: alert, oriented: goo d eye contact: cooperative with exam: cognitive function intact: speech clear: thought process logical, goal directed ORAL CAVITY: normal, unremarkable
--- OUTSIDE RECORDS SUMMARY | 2025-04-26 06:45 | XMS_ITS ---
Author Organization Hawk Cunningham III, MD Address [address] [place] [address] Care Team Providers Care Satin Finisher Name Role Phone Dr. Hawk Cunningham III Primary Care Provider [phone] Allergies Allergen (clinical drug ingredient) Drug/Non Drug Allergy documented on EMR Reaction Allergy Type Onset Date Status Seasonale Unknown Drug Allergy Active REASON FOR VISIT Follow up Medications Medication SIG (Take, Route, Frequency, Duration) Notes Start Date End Date Status Multivitamin - 1 tablet Orally Once a day Active Claritin 10 MG 1 tablet Orally Once a day Active Vitamin D 50 MCG (1999 UT) 1 tablet Orally Once a day Active Metoprolol Succinate ER 50 MG TAKE 1 TABLET BY MOUTH EVERY DAY FOR 90 DAYS Active Albuterol Sulfate HFA 108 (90 Base) MCG/ACT 1 puff Inhalation every 4 hrs disp one inhaler 2024 Active Social History Tobacco Use: Social History [...] Problem Status W/U Status Risk Notes Problem [id number] Steatosis (E88.89) Active confirmed This ws seen in the livewer on the ultrasound. There is mild elevation of the LFTs. Problem Left lower quadrant pain (517123379) Left lower quadrant pain (R10.32) Active confirmed The ultrasound is negative. I have ordered a ;pelvic ultrasound and ship harbor pilot consult. Vital Signs Temperature 97.3 degrees Fahrenheit 04/26/20 25 Blood pressure systolic 140 mm Hg 04/26/20 25 Blood pressure diastolic 76 mm Hg 025 Heart Rate 69 /min 04/26/2025 Height 62 in 04/26/2025 Weight 201 lbs 04/26/2025 BMI 36.76 kg/m2 04/26/2025 Encounters Encounter Location Date Provider Diagnosis Hawk Cunningham III, MD [address] [place] [address] DR [place], [place] [phone] 04/26/2025 Hawk Cunningham Left lower quadrant pain R10.32 ; Steatosis E88.89 ; Hyperlipidemia, unspecified hyperlipidemia type E78.5 ; Environmental allergies Z91.09 ; H/O hysterectomy for benign disease Z90.710 ; Gastroesophageal reflux disease with esophagitis without hemorrhage K21.00 ; Essential hypertension I10 ; Obesity (BMI 30.0-34.9) E66.9 and Lumbar back pain M54.5 Assessments Encounter Date Diagnosis (ICD Code) Assessment Notes T reatment Notes Treatment Clinical Notes 04/26/2025 Left lower quadrant pain (ICD-10 - R10.32) The ultrasound is negative. I have ordered a ;pelvic ultrasound and ship harbor pilot consult. 04/26/2025 Steatosis (ICD-10 - E88.89) This ws seen in the livewer on the ultrasound. There is mild elevation of the LFTs. 04/26/2025 Hyperlipidemia, unspecified hyperlipidemia type (ICD-10 - E78.5) Her total cholesterol is 247. We have discussed diet and nutrition today. We have reviewed her cardiovascular risk factors. We have elected to try aggressive weight loss to reduce her lipids and weight and blood pressure. She continues to decline a statin prescription. 04/26/2025 Environmental allergies (ICD-10 - Z91.09) She has had no recent complaints of allergy now that it is winter. She expects to have allergies to pollen this coming spring and we will deal with that. 04/26/2025 H/O hysterectomy for benign disease (ICD-10 - Z90.710) I have asked her to ask the administrative volunteer whom she will see next month to clarify her menopausal status. 04/26/2025 Gastroesophageal reflux disease with esophagitis without hemorrhage (ICD-10 - K21.00) Her GERD is well controlled with current medications, which were continued. 04/26/2025 Essential hypertensi on (ICD-10 - I10) Her blood pressure is elevated. Medication will be given if she agrees after the abdominal pain is diagnosed. 04/26/2025 Obesity (BMI 30.0-34.9) (ICD-10 - E66.9) She has lost weight. We discussed diet and nutrition and made a plan to lose further weight loss. 04/26/2025 Lumbar back pain (ICD-10 - M54.5) This is likely degenerative disc disease with nerve compression causing bilateral radiation of the hips. She was treated with a muscle relaxer and dexamethasone with close follow-up. Plan Of Treatment Medication Medication Name Sig Start Date Stop Date Notes Multivitamin - 1 tablet Orally Once a day Claritin 10 MG 1 tablet Orally Once a day Vitamin D 50 MCG (2000 UT) 1 tablet Orally Once a day Metoprolol Succinate ER 50 MG TAKE 1 TABLET BY MOUTH EVERY DAY FOR 90 DAYS Albuterol Sulfate HFA 108 (90 Base) MCG/ACT 1 puff Inhalation every 4 hrs 2024 disp one inhaler Pending Test Test Name Order Date US pelvic and transvaginal 04/26/2025 Next Appt Details Follow Up: 6 weeks, Reason: ov review ultrasound Provider Name:Hawk Cunningham , 04/18/2026 09:00:00 AM, [address] [place] [address], [phone], Progress Notes * BARBARASolo LOBATOna IDOB: 4 (59 yo F)Acc No.[id number]:04/26/2025 Progress Notes Patient: Val CINTRON I Provider: Jd Cunningham MD :1965 A ge:59 Y S ex:Female Date:04/26/2025 Address:[address] [place] [address] Stac[id number] Subjective: * Chief Complaints: * F ollow up * HPI: C OVID-19 Screening: Questions H ave you had any new onset fever, chills, cough, congestion, sore throat, shortness of breath, muscle aches? N o * ROS: G eneral/Constitutional: pain l eft lower abdomen unchanged. C hills d enies. F atigue a dmits. F ever d enies. E [...] have been noted. G enitourinary: Frequent urination a t night. M usculoskeletal: Muscle aches d enies. P ainful joints d enies. S ciatica d enies. W eakness d enies. S kin: Itching d enies. R eric d enies. S kin lesion(s)?denies. N eurologic: Difficulty speaking d enies. D izziness d enies.?Headache d enies. L ow back pain d enies. P sychiatric: Depressed mood d enies. * Medical History: * Surgical History: H ysterectomy [id number] both tubal ligation 1985root canal 1colonoscopy at 02/17/2023No history * Hospitalization/Major Diagno stic [...] T obacco Use: T obacco Use/Smoking P atient is a n onsmoker A dditional Findings: [...] Tablet 1 tablet Orally Once a day Medication List reviewed and reconciled with the [...] Tablet 1 tablet Orally Once a day Medication List reviewed and reconciled with the patient * Allergies: S easonale: Allergyno[Allergies Verified] Objective: * Vitals: H t: 62, Wt: 201, BMI:36.76, BP: 140/76, HR: 69, Temp: 97.3, Ht-cm: 157.48, Wt-k.17. * P ast Orders: Imaging:MAMMOGRAM DIGITAL BI LATERAL SCREEN * Performed Date 11/28/2019 04:28 PM Order Date 11/28/2019 03/19/2024 03/26/2025 Result: undefined undefined * Imaging:MM tomosynthesis scr eening BI * Performed Date 03/26/2025 03/19/2024 03/18/2023 08:00 AM 08:20 AM 09:11 AM Order Date 03/26/2025 03/19/2024 03/18/2023 ???Imaging:US abdomen complete (Order Date - 04/17/2025) (Performed Date - 04/17/2025) * Lab:Complete Blood Count Aut o Diff * Collection Date 04/17/2025 08/07/2024 04/13/2024 Collection Time 07:07 AM 10:29 AM 11:02 AM Order Date 04/17/2025 08/07/2024 04/13/2024 White Blood Count 5.1 (Ref Range: 4.8-10.8 X10*3/uL) 5.2 (Ref Range: 4.8-10.8 X10*3/uL) 5.5 (Ref Range: 4.8-10.8 X10*3/uL) Red Blood Count 4.24 (Ref Range: 4.20-5.50 X10*6/uL) 4.44 (Ref Range: 4.20-5.50 X10*6/uL) 4.17 L (Ref Range: 4.20-5.50 X10*6/uL) Hemoglobin 13.4 (Ref Range: 12.0-16.0 g/dl) 14.0 (Ref Range: 12.0-16.0 g/dl) 13.6 (Ref Range: 12.0-16.0 g/dl) Hematocrit 39.9 (Ref Range: 37.0-47.0 %) 42.4 (Ref Range: 37.0-47.0 %) 40.0 (Ref Range: 37.0-47.0 %) Mean Corpuscular Volume 94.1 (Ref Range: 80.0-98.0 fL) 95.5 (Ref Range: 80.0-98.0 fL) 95.9 (Ref Range: 80.0-98.0 fL) Mean Corpuscular Hemoglobin 31.6 (Ref Range: 27.0-33.0 pg) 31.5 (Ref Range: 27.0-33.0 pg) 32.6 (Ref Range: 27.0-33.0 pg) Mean Corpuscular HGB Conc 33.6 (Ref Range: 31.0-35.0 g/dl) 33.0 (Ref Range: 31.0-35.0 g/dl) 34.0 (Ref Range: 31.0-35.0 g/dl) Red Cell Distribution Width 13.0 (Ref Range: 11.0-16.0 %) 12.6 (Ref Range: 11.0-16.0 %) 12.6 (Ref Range: 11.0-16.0 %) Platelet Count 255 (Ref Range: 160-400 X10*3/uL) 256 (Ref Range: 160-400 X10*3/uL) 244 (Ref Range: 160-400 X10*3/uL) Mean Platelet Volume 11.6 (Ref Range: 9.4-12.3 fL) 12.0 (Ref Range: 9.4-12.3 fL) 11.6 (Ref Range: 9.4-12.3 fL) Neutrophils Percent Auto 52.3 (Ref Range: 45-73 %) 59.1 (Ref Range: 45-73 %) 62.5 (Ref Range: 45-73 %) Imm Gran Pct Auto 0.4 (Ref Range: 0.0-0.4 %) 1.0 H (Ref Range: 0.0-0.4 %) 0.7 H (Ref Range: 0.0-0.4 %) Lymphocytes Percent Auto 36.0 (Ref Range: 20-40 %) 27.8 (Ref Range: 20-40 %) 25.4 (Ref Range: 20-40 %) Monocytes Percent Auto 7.5 (Ref Range: 2-11 %) 8.0 (Ref Range: 2-11 %) 8.0 (Ref Range: 2-11 %) Eosinophils Percent Auto 2.8 (Ref Range: 0-4 %) 3.1 (Ref Range: 0-4 %) 2.9 (Ref Range: 0-4 %) Basophils Percent Auto 1.0 (Ref Range: 0-2 %) 1.0 (Ref Range: 0-2 %) 0.5 (Ref Range: 0-2 %) NRBC Pct Auto 0.0 (Ref Range: 0.0-0.2 /100WBC) 0.0 (Ref Range: 0.0-0.2 /100WBC) 0.0 (Ref Range: 0.0-0.2 /100WBC) Neutrophils Absolute Auto 2.7 (Ref Range: 2.0-8.3 x10*3/uL) 3.1 (Ref Range: 2.0-8.3 x10*3/uL) 3.4 (Ref Range: 2.0-8.3 x10*3/uL) Imm Gran Abs Auto 0.02 (Ref Range: 0.00-0.03 X10*3/uL) 0.05 H (Ref Range: 0.00-0.03 X10*3/uL) 0.04 H (Ref Range: 0.00-0.03 X10*3/uL) Lymphocytes Absolute Auto 1.8 (Ref Range: 1.2-4.9 X10*3/uL) 1.4 (Ref Range: 1.2-4.9 X10*3/uL) 1.4 (Ref Range: 1.2-4.9 X10*3/uL) Monocytes Absolute Auto 0.4 (Ref Range: 0.1-1.2 X10*3/uL) 0.4 (Ref Range: 0.1-1.2 X10*3/uL) 0.4 (Ref Range: 0.1-1.2 X10*3/uL) Eosinophils Absolute Auto 0.1 (Ref Range: 0.0-0.4 X10*3/uL) 0.2 (Ref Range: 0.0-0.4 X10*3/uL) 0.2 (Ref Range: 0.0-0.4 X10*3/uL) Basophils Absolute Auto 0.1 (Ref Range: 0.0-0.2 X10*3/uL) 0.1 (Ref Range: 0.0-0.2 X10*3/uL) 0.0 (Ref Range: 0.0-0.2 X10*3/uL) NRBC Abs Auto 0.000 (Ref Range: 0.0-0.012 X10*3/uL) 0.000 (Ref Range: 0.0-0.012 X10*3/uL) 0.000 (Ref Range: 0.0-0.012 X10*3/uL) * Lab:Nelly Hathaway. Abimael l Fast * Collection Date 04/17/2025 08/07/2024 04/13/2024 Collection Time 07:07 AM 10:29 AM 11:02 AM Order Date 04/17/2025 08/07/2024 04/13/2024 Sodium 145 (Ref Range: 135-145 mmol/L) 142 (Ref Range: 135-145 mmol/L) 144 (Ref Range: 135-145 mmol/L) Bilirubin Total 0.8 (Ref Range: 0.0-1.0 mg/dL) 0.8 (Ref Range: 0.0-1.0 mg/dL) 0.6 (Ref Range: 0.0-1.0 mg/dL) Aspartate Amino Transferase 34 H (Ref Range: 5-31 U/L) 33 H (Ref Range: 5-31 U/L) 33 H (Ref Range: 5-31 U/L) Alanine Aminotransferase 44 H (Ref Range: 0-31 U/L) 48 H (Ref Range: 0-31 U/L) 47 H (Ref Range: 0-31 U/L) Total Protein 7.7 (Ref Range: 6.5-8.0 g/dL) 7.9 (Ref Range: 6.5-8.0 g/dL) 7.8 (Ref Range: 6.5-8.0 g/dL) Albumin Level 4.8 (Ref Range: 3.5-5.0 g/dL) 4.6 (Ref Range: 3.5-5.0 g/dL) 4.6 (Ref Range: 3.5-5.0 g/dL) Alkaline Phosphatase 84 (Ref Range: 39-117 U/L) 83 (Ref Range: 39-117 U/L) 81 (Ref Range: 39-117 U/L) Potassium 3.6 (Ref Range: 3.3-5.1 mmol/L) 3.9 (Ref Range: 3.3-5.1 mmol/L) 4.3 (Ref Range: 3.3-5.1 mmol/L) Chloride 107 (Ref Range: 96-108 mmol/L) 107 (Ref Range: 96-108 mmol/L) 106 (Ref Range: 96-108 mmol/L) Carbon Dioxide 28 (Ref Range: 22-29 mmol/L) 30 H (Ref Range: 22-29 mmol/L) 28 (Ref Range: 22-29 mmol/L) Anion Gap 14 (Ref Range: 12-20) 9 L (Ref Range: 12-20) 14 (Ref Range: 12-20) Blood Urea Nitrogen 17 H (Ref Range: 9-16 mg/dL) 17 H (Ref Range: 9-16 mg/dL) 16 (Ref Range: 9-16 mg/dL) Creatinine 1.01 (Ref Range: 0.5-1.4 mg/dL) 0.91 (Ref Range: 0.5-1.4 mg/dL) 0.85 (Ref Range: 0.5-1.4 mg/dL) Estimated Glomerular Filt Rate 56 > 60 > 60 Glucose Fasting 122 H (Ref Range: 60-99 mg/dL) 133 H (Ref Range: 60-99 mg/dL) 117 H (Ref Range: 60-99 mg/dL) Calcium 9.4 (Ref Range: 8.4-10.2 mg/dL) 9.9 (Ref Range: 8.4-10.2 mg/dL) 9.5 (Ref Range: 8.4-10.2 mg/dL) ???Lab:Erythrocyte Sedimentation Rate (Order Date - 04/17/2025) (Collection Date & Time - 04/17/2025 07:07 AM)?ValueReference Range?Erythrocyte Sedimentation [id number] - MM/HR * Lab:Lipid Panel * Collection Date 04/17/2025 08/07/2024 04/13/2024 Collection Time 07:07 AM 10:29 AM 11:02 AM Order Date 04/16/2025 08/07/2024 04/13/2024 Triglycerides 175 H (Ref Range: <150 mg/dL) 142 (Ref Range: <150 mg/dL) 133 (Ref Range: <150 mg/dL) Cholesterol 247 H (Ref Range: <200 mg/dL) 239 H (Ref Range: <200 mg/dL) 238 H (Ref Range: <200 mg/dL) LDL Cholesterol Calculated 178 H (Ref Range: <100 mg/dL) 166 H (Ref Range: <100 mg/dL) 172 H (Ref Range: <100 mg/dL) HDL Cholesterol 34 L (Ref Range: >40 mg/dL) 45 (Ref Range: >40 mg/dL) 40 L (Ref Range: >40 mg/dL) * Examination: G eneral Examination: GENERAL APPEARANCE: p leasant, well nourished, well developed, in no acute distress, calm and relaxed. HEAD: a traumatic, normocephalic. EYES: e angel, [...] LUNGS: c lear to auscultation . BREASTS: d eclined, prefers the ship harbor pilot. ABDOMEN: b owel sounds normal, no ascites, no organomegaly, no mass, no mass or rebound. RECTAL EXAM: n ot examined, prefers ship harbor pilot. MUSCULOSKELETAL: e xtremities unremarkable, no clubbing, cyanosis or edema. PERIPHERAL PULSES: n ormal. NEUROLOGIC: a lert and oriented, cranial nerves 2-12 grossly intact, deep tendon reflexes 2+ symmetrical, motor strength normal upper and lower extremities, sensory exam intact. PSYCH: a lert, oriented. Assessment: * Assessment: 1. L eft lower quadrant pain - R10.32 (Primary) N otes :The ultrasound is negative. I have ordered a ;pelvic ultrasound and ship harbor pilot consult. 2 . S teatosis - E88.89 N otes :This ws seen in the livewer on the ultrasound. There is mild elevation of the LFTs. 3 . H yperlipidemia, unspecified hyperlipidemia type - E78.5 N otes :Her total cholesterol is 247. We have discussed diet and nutrition today. We have reviewed her cardiovascular risk factors. We have elected to try aggressive weight loss to reduce her lipids and weight and blood pressure. She continues to decline a statin prescription. 4 . E nvironmental allergies - Z91.09 N otes :She has had no recent complaints of allergy now that it is winter. She expects to have allergies to pollen this coming spring and we will deal with that. 5 . H /O hysterectomy for benign disease - Z90.710 N otes :I have asked her to ask the administrative volunteer whom she will see next month to clarify her menopausal status. 6 . G astroesophageal reflux disease with esophagitis without hemorrhage - K21.00 N otes :Her GERD is well controlled with current medications, which were continued. 7 . E ssential hypertension - I10 N otes :Her blood pressure is elevated. Medication will be given if she agrees after the abdominal pain is diagnosed. 8 . O besity (BMI 30.0-34.9) - E66.9 N otes :She has lost weight. We discussed diet and nutrition and made a plan to lose further weight loss. 9 . L umbar back pain - M54.5 N otes :This is likely degenerative disc disease with nerve compression causing bilateral radiation of the hips. She was treated with a muscle relaxer and dexamethasone with close follow-up. Plan: * Treatment: 2. O thers Continue Albuterol Sulfate HFA Aerosol [...] management education, guidance, and counseling, Dietary needs education, Exercise promotion: strength training, Exercise promotion: stretching, Feeding regime, Giving encouragement to exercise, Lifestyle education regarding diet, Nutrition / feeding management, Nutrition therapy, Prescribed activity/exercise education, Prescribed diet education, Prescribed dietary intake, Special diet education, Weight monitoring , Intervention, Order not done: Medical or Other reason not done * Follow Up: 6 weeks (Reason: ov review ultrasound) * Images: * Sign off status: Completed true * Provider: Jd Cunningham MD Date: 0 04/26/2025 Generated for El gonsalez/Flynn/Mandaitting on: 03:56 PM EDT History and Physical Notes * HPI (History of Present Illness) Category Sub-Category Detail Notes COVID-19 Screening Questions Have you had any new onset fever, chills, cough, congestion, sore throat, shortness of breath, muscle aches?: No Examination Category Sub-Category Detail Notes General Examination GENERAL APPEARANCE: pleasant , well nourished, well developed, in no acute distress, calm and relaxed HEAD: atraumatic, normocep halic EYES: eomi, perrla, anicte leandra, conjugate EARS: normal NOSE: septum intact NECK/THYROID: no jugular venous di stention, no carotid bruit, thyroid normal HEART: no clicks, gallops, murmurs, or rubs, regular rhythm, S1, S2 normal, no s3, or vascular bruits LUNGS: clear to auscultatio n ABDOMEN: bowel sounds normal, no ascites, no organomegaly, no mass, no mass or rebound NEUROLOGIC: alert and oriented, cranial nerves 2-12 grossly intact, deep tendon reflexes 2+ symmetrical, motor strength normal upper and lower extremities, sensory exam intact SKIN: no suspicious lesion s, anicteric PERIPHERAL PULSES: normal BREASTS: declined, prefers th e ship harbor pilot MUSCULOSKELETAL: extremities unremark able, no clubbing, cyanosis or edema LYMPH NODES: no enlarged lymph no adarsh,spleen normal RECTAL EXAM: not examined, prefer s ship harbor pilot PSYCH: alert, oriented ORAL CAVITY: normal, unremarkable
--- OUTSIDE RECORDS SUMMARY | 2025-06-07 07:15 | XMS_ITS ---
Author Organization Hawk Cunningham III, MD Address [address] [place] [id number] Care Team Providers Care General Surgery Physician Assistant Name Role Phone Dr. Hawk Cunningham III [...] a day Active Vitamin D 50 MCG (2000 UT) 1 tablet Orally Once a day Active Metoprolol Succinate ER 50 MG TAKE 1 TABLET BY MOUTH EVERY DAY FOR 90 DAYS Active Albuterol Sulfate HFA 108 (90 Base) MCG/ACT 1 puff Inhalation every 4 hrs disp one inhaler 2024 Active Multivitamin - 1 tablet Orally Once a day Active Social History Tobacco Use: Social History Observation Description Date Details (start date - stop date) Never Smoker NA - NA Sex Assigned At : Social History Observation Description Sex Assigned At Female Tobacco Use/Smoking Question Answer Notes Patient is a nonsmoker Additional Findings: Tobacco Non-User Aggressive non-smoker Encounters Encounter Location Date Provider Diagnosis Hawk Cunningham III, MD [address] [place] [address] [place] [id number] 06/07/2025 Hawk Cunningham Plan Of Treatment Medication Medication Name Sig [...] every 4 hrs 2024 disp one inhaler Multivitamin - 1 tablet Orally Once a day Next Appt Details Provider Name:Hawk Cunningham , 04/18/2026 09:00:00 AM, [address] [place] [address] DR [facility] [place], [place], [phone], Progress Notes * Val JIMENEZ IDOB: 4 (59 yo F)Acc No.[id number]:06/07/2025 Progress Notes Patient: Val CINTRON I Provider: Jd Cunningham MD :1965 A ge:59 Y S ex:Female Date:06/07/2025 Address:[address] [place] [address] [place]A [place] [id number] Subjective: * Chief Complaints: * 1 . Follow up. * HPI: C OVID-19 Screening: Questions H ave you had any new onset fever, chills, cough, congestion, sore throat, shortness of breath, muscle aches? N o * ROS: G eneral/Constitutional: pain o nly normal aches and pains. C hills d enies.?Fatigue a dmits. F ever d enies. E NT: Decreased hearing d enies. R espiratory: Cough d enies. C ardiovascular: Chest pain with exertion d enies. D yspnea on exertion?denies. S hortness of breath d enies. G astrointestinal: Constipation d enies. D ecreased appetite d enies.?Diarrhea d enies. H eartburn d enies. N ausea d enies. R ectal bleeding?denies. V omiting d enies. H ematology: bruising [...] Depressed mood d enies. * Medical History: H ysterectomy 2014, Dysfunction uterine bleeding, 2 para 2, Environmental allergies, Obesity, GERD, Costochondritis 2022, Hyperlipidemia, Elevated TSH. * Surgical History: H ysterectomy 2014, both , tubal ligation 1984, root canal 08/2021, colonoscopy at 02/17/2023, No history . * Hospitalization/Major Diagno stic Procedure: N o history . * Family History: F ather: alive 75 [...] T obacco Use: T obacco Use/Smoking P atsimeon is a n onsmoker A dditional Findings: Tobacco Non-User A ggressive non-smoker S he has been to [place] for many years. He has 2 healthy children and a daughter. she is currently employed at a school. She had a colonoscopy 02/17/2023 normal . her mammogram is going to be done on 03/18/2023 at . * Medications: T aking Albuterol Sulfate HFA 108 (90 Base) MCG/ACT Aerosol Solution 1 puff Inhalation every 4 hrs , Notes to Pharmacist: disp one inhaler, Taking Metoprolol Succinate ER 50 MG Tablet Extended Release 24 Hour TAKE 1 TABLET BY MOUTH EVERY DAY FOR 90 DAYS , Taking Vitamin D 50 MCG (2000 UT) Tablet 1 tablet Orally Once a day , Taking Claritin 10 MG Tablet 1 tablet Orally Once a day , Taking Multivitamin - Tablet 1 tablet Orally Once a day , Medication List reviewed and reconciled with the patient * Allergies: S easonale: Allergy. Objective: * Vitals: * Examination: G eneral Examination: GENERAL APPEARANCE: [...] sounds normal, no ascites, no organomegaly, no mass. RECTAL EXAM: n ot examined. MUSCULOSKELETAL: e xtremities unremarkable, no clubbing, cyanosis or edema. PERIPHERAL PULSES: n ormal. NEUROLOGIC: a lert and oriented, cranial nerves 2-12 grossly intact, deep tendon reflexes 2+ symmetrical, motor strength normal upper and lower extremities, sensory exam intact. PSYCH: a lert, oriented. Assessment: Plan: * Treatment: * Images: * The named appointment provid er may or may not be the originator of this progress note, and it is not deemed complete until electronically signed by the appointment provider. Sign off status: Pending * Provider: Jd Cunningham MD Date: 0 06/07/2025 Generated for El gonsalez/Flynn/eTnickyitting on: 03:57 PM EDT History and Physical Notes * [...] sounds normal, no ascites, no organomegaly, no mass NEUROLOGIC: alert and oriented, cranial nerves 2-12 grossly intact, deep tendon reflexes 2+ symmetrical, motor strength normal upper and lower extremities, sensory exam intact SKIN: no suspicious lesion s, anicteric PERIPHERAL PULSES: normal BREASTS: no masses palpable b ilaterally MUSCULOSKELETAL: extremities unremark able, no clubbing, cyanosis or edema LYMPH NODES: no enlarged lymph no adarsh,spleen normal RECTAL EXAM: not examined PSYCH: alert, oriented ORAL CAVITY: normal, unremarkable
--- OUTSIDE RECORDS SUMMARY | 2025-06-12 10:41 | XMS_ITS ---
Author Organization Hawk Cunningham III, MD Address [address] [place] [address] Care Team Providers Care Data Entry Processor Name Role Phone Dr. Hawk Cunningham III Primary Care Provider Reason For Referral Reason Evaluate and treat Diagnosis 1 Routine gynecologica l examination (Z01.419) Referral Organization Hawk Cunningham III, MD Referring Provider First Name Hawk Referring Provider Last Name Marisa Referring Provider Speciality Internal M edicine Referred Organization [facility] nter Referred Provider [facility] er, [facility] Referred Address [address] [place] [phone], Referred Provider Specialty OB - Gynecol ogy General Malinda Minor 06/12/2025 02:44:43 PM > referral faxed with last progress note. Referral Priority Routine REASON FOR VISIT INFORMATION OFFICER Referral to Social History Sex Assigned At : Social History Observation Description Sex Assigned At Female Encounters Encounter Location Date Provider Diagnosis Hawk Cunningham III, MD [address] [place] [address] [place] [phone] 06/12/2025 Hawk Cunningham Plan Of Treatment Referrals Referral Date Details 06/12/2025 06/12/2025, Evaluate and treat, [facility], [address] [place] [address], [phone], Next Appt Details Provider Name:Hawk Cunningham , 04/18/2026 09:00:00 AM, [address] [place] [address] [place], [address], Progress Notes * Val JIMENEZ IDOB: 4 (59 yo F)Acc No.[id number]:06/12/2025 Patient: Val CINTRON I :1965 A ge:59 Y S ex:Female Address:[address] [place] [address], [phone] Subjective: * Chief Complaints: * G YN Referral to * Medical History: * Surgical History: * Hospitalization/Major Diagno stic Procedure: * Medications: Objective: * Vitals: * Physical Examination: Assessment: Plan: * Treatment: * Procedure Codes: * true * Date: Generated for El gonsalez/Flynn/Mandaitting on: 03:57 PM EDT Consultation Request Notes Referral Date Referring Provider Referred Provider Not 06/12/2025 Hawk Cunningham [facility], [facility] Evaluate and treat
--- NOTE | ~2025-06-20 | US_ITS ---
EXAMINATION: US PELVIS CLINICAL INFORMATION: Left lower quadrant pain COMPARISON: None available. TECHNIQUE: Ultrasound of the pelvis is performed using both transabdominal and transvaginal transducers along with Doppler. Transvaginal imaging is performed due to inadequate visualization transabdominally. FINDINGS: Uterus: The uterus is surgically absent. The cervix remains intact and appears to be unremarkable. There is trace fluid in the endocervical canal. Adnexa: Both ovaries are visualized. There is normal color flow to the adnexa. There is no ovarian torsion. There is no pelvic ascites or fluid collection. Right ovary measures 2.7 x 1.4 x 1.6 cm. Left ovary measures 2.2 x 2.0 x 2.1 cm. A few small follicles are visible. US/US pelvic and transvaginal IMPRESSION: Status post hysterectomy with intact cervix. Otherwise, unremarkable exam. Electronically signed by: Agustin Cerrato MD 06/20/2025 02:59 PM EDT
--- OUTSIDE RECORDS SUMMARY | 2025-06-20 15:56 | XMS_ITS | Patient Health Record ---
Author Organization Hawk Cuninngham III, MD Address [address] [place] [address] Care Team Providers Care Milk Drier Name Role Phone Dr. Hawk Cunningham III Primary Care Provider Allergies Allergen (clinical drug ingredient) Drug/Non Drug Allergy documented on EMR Reaction Allergy Type Onset Date Status Seasonale Unknown Drug Allergy Active Results Component Value Reference Range Notes Lipid Panel Reviewed date:04/26/2025 10:50:16 AM Interpretation: Performing Lab:[facility], [address] [place] [phone] Notes/Report: Triglycerides 175 <150 mg/dL Desirable Triglyceride: [...] ff Reviewed date:2024 08:51:59 AM Interpretation: Performing Lab:[facility], [address] [place] [phone] Notes/Report: White Blood Count 5.2 4.8-10.8 X10*3/uL [...] NRBC Abs Auto 0.000 0.0-0.012 X10*3/uL Comprehensive [place]. Panel Fa st Reviewed date:2024 08:52:00 AM Interpretation: Performing Lab:[facility], [address] [place] [phone] Notes/Report: Sodium 142 135-145 mmol/L Potassium 3.9 [...] Panel Reviewed date:2024 08:52:00 AM Interpretation: Performing Lab:[facility], [address] [place] [phone] Notes/Report: Triglycerides 142 <150 mg/dL Desirable Triglyceride: [...] liver disease. MM tomosynthesis screening B I Reviewed date:04/26/2025 10:50:16 AM Interpretation: Performing Lab: Notes/Report: [facility] [address] [place] [address] Mammography Report Signed Patient: Val Jimenez MR#: [id number] : 1965 Acct:[id number] Age/Sex: 59 / F ADM Date: 03/26/25 Loc: HO.MAMMO Attending Dr: Hawk Cunningham MD Ordering Physician: Hawk Cunningham MD Results: 2Benign Findings Date of Service: 03/26/25 Follow Up: 1 Year From Orig inal Mammogram Procedure(s): MM tomosynthesis screening BI Accession Number(s): [id number] cc: Hawk Cunningham MD EXAMINATION: MM SCREENING [...] Adams DO in OV> 04/08/25 0839 DD/ 0800 TD/TT: 03/26/25 0820 Staff Interpreter: [facility] [address] [place] [address] Mammography Report Signed Patient: Stevenson Jimenez MR#: [id number] : 1965 Acct:[id number] Age/Sex: 59 / F ADM Date: 03/26/25 Loc: VIVIANA Attending Dr: Hawk Cunningham MD Ordering Physician: Hawk Cunningham MD Results: 2Benign Findings Date of Service: 03/26/25 Follow Up: 1 Year From Orig inal Mammogram Procedure(s): MM tomosynthesis screening BI Accession Number(s): [id number] cc: Hawk Cunningham MD EXAMINATION: MM SCREENING [...] OV> 04/08/25 0839 DD/ 08 TD/TT: 03/26/25 0820 Staff Interpreter: MAMMOGRAM DIGITAL BILATERAL SCREEN Reviewed date:04/10/2025 11:09:39 AM Interpretation:undefined Performing Lab: Notes/Report: undefined Complete Blood Count Auto Di ff Reviewed date:04/26/2025 10:50:16 AM Interpretation: Performing Lab:[facility], [address] [place] [phone] Notes/Report: White Blood Count 5.1 4.8-10.8 X10*3/uL Red Blood Count 4.24 4.20-5.50 X10*6/uL Hemoglobin 13.4 12.0-16.0 g/dl Hematocrit 39.9 37.0-47.0 % Mean Corpuscular Volume 94.1 80.0-98.0 fL Mean Corpuscular Hemoglobin 31.6 27.0-33.0 pg Mean Corpuscular HGB Conc 33.6 31.0-35.0 g/dl Red Cell Distribution Width 13.0 11.0-16.0 % Platelet Count 255 160-400 X10*3/uL Mean Platelet Volume 11.6 9.4-12.3 fL Neutrophils Percent Auto 52.3 45-73 % Imm Gran Pct Auto 0.4 0.0-0.4 % Lymphocytes Percent Auto 36.0 20-40 % Monocytes Percent Auto 7.5 2-11 % Eosinophils Percent Auto 2.8 0-4 % Basophils Percent Auto 1.0 0-2 % NRBC Pct Auto 0.0 0.0-0.2 /100WBC Neutrophils Absolute Auto 2.7 2.0-8.3 x10*3/u L Imm Gran Abs Auto 0.02 0.00-0.03 X10*3/uL Lymphocytes Absolute Auto 1.8 1.2-4.9 X10*3/u L Monocytes Absolute Auto 0.4 0.1-1.2 X10*3/uL Eosinophils Absolute Auto 0.1 0.0-0.4 X10*3/u L Basophils Absolute Auto 0.1 0.0-0.2 X10*3/uL NRBC Abs Auto 0.000 0.0-0.012 X10*3/uL Erythrocyte Sedimentation Ra te Reviewed date:04/26/2025 10:50:16 AM Interpretation: Performing Lab:[facility], [address] [place] [phone] Notes/Report: Erythrocyte Sedimentation Rate 48 0-20 MM/HR Patients with polycythemia and many hemoglobin abnormalities may have depressed sed rates whereas patients with anemia may have elevated sed rates. Comprehensive [place]. Panel Fa st Reviewed date:04/26/2025 10:50:16 AM Interpretation: Performing Lab:[facility], [address] [place] [phone] Notes/Report: Sodium 145 135-145 mmol/L Potassium 3.6 3.3-5.1 mmol/L Chloride 107 96-108 mmol/L Carbon Dioxide 28 22-29 mmol/L Anion Gap 14 12-20 Blood Urea Nitrogen 17 9-16 mg/dL Creatinine 1.01 0.5-1.4 mg/dL Estimated Glomerular Filt Rate 56 Chronic Kidney Disease: Estimated GFR < 60 mL/min/1.73m2 Severe Kidney Disease: Estimated GFR < 15 mL/min/1.73m2 Glucose Fasting 122 60-99 mg/dL A fasting glucose from 100-125 mg/dl is considered impaired (pre-diabetes). Calcium 9.4 8.4-10.2 mg/dL Bilirubin Total 0.8 0.0-1.0 mg/dL Aspartate Amino Transferase 34 5-31 U/L Alanine Aminotransferase 44 0-31 U/L Total Protein 7.7 6.5-8.0 g/dL Albumin Level 4.8 3.5-5.0 g/dL Alkaline Phosphatase 84 39-117 U/L US abdomen complete Reviewed date:04/26/2025 10:50:16 AM Interpretation: Performing Lab: Notes/Report: [address] [address] Ultrasound Report Signed Patient: Val Jimenez MR#: [id number] : 1965 Acct:[id number] Age/Sex: 59 / F ADM Date: 04/17/25 Loc: HO.US Attending Dr: Hawk Cunningham MD Ordering Physician: Hawk Cunningham MD Date of Service: 04/17/25 Procedure(s): US abdomen complete Accession Number(s): [id number] cc: Hawk Cunningham MD EXAMINATION: US ABDOMEN HISTORY: LEFT LOWER QUADRANT ABDOMINAL PAIN, DIVERTICULITIS, KIDNEY STONE TECHNIQUE: Real-time grayscale ultrasound imaging of the abdomen was performed and images were reviewed. COMPARISON: There are no prior studies available for comparison. FINDINGS: Liver: The right lobe of the liver measures 18.3 cm in size. The left lobe of the liver measures 15.2 cm in size. The liver demonstrates increased echotexture, consistent with steatosis. No focal mass or intrahepatic biliary ductal dilatation is identified. There is normal hepatopedal flow in the portal vein. Gallbladder and biliary tree: The gallbladder is unremarkable, without evidence of calculi, wall thickening, or pericholecystic fluid. There is no sonographic Arias sign. The common bile duct is normal in caliber measuring 3 mm. Kidneys: The right kidney measures 10.1 cm in length. The left kidney measures 10.9 cm in length. The kidneys are unremarkable, without evidence of masses, hydronephrosis, or calculi. Pancreas: The pancreatic head, neck, and body are unremarkable. The pancreatic tail is obscured by bowel gas. Spleen: The spleen is normal in size and contour, measuring 10.5 cm in length. Abdominal aorta and inferior vena cava: The visualized portions of the abdominal aorta and inferior vena cava are normal in caliber. There is no free fluid in the abdomen. US/US abdomen complete IMPRESSION: Hepatomegaly and hepatic steatosis. If there is clinical concern for diverticulitis, CT of the abdomen and pelvis with contrast is recommended. Electronically signed by: Hawk Mcpherson MD 04/17/2025 07:50 AM EDT RP Dictated By: Hawk Mcpherson MD Signed By: <Electronically signed by Hawk Mcpherson MD in OV> 04/17/25 0750 DD/ 0715 TD/TT: 04/17/25 0738 Staff Interpreter: [place] [address] Ultrasound Report Signed Patient: Stevenson Jimenez MR#: [id number] : 1965 Acct:[id number] Age/Sex: 59 / F ADM Date: 04/17/25 Loc: HO.US Attending Dr: Hawk Cunningham MD Ordering Physician: Hawk Cunningham MD Date of Service: 04/17/25 Procedure(s): US abdomen complete Accession Number(s): [id number] cc: Hawk Cunningham MD EXAMINATION: US ABDOMEN HISTORY: LEFT LOWER QUADRANT ABDOMINAL PAIN, DIVERTICULITIS, KIDNEY STONE TECHNIQUE: Real-time grayscale ultrasound imaging of the abdomen was performed and images were reviewed. COMPARISON: There ar e no prior studies available for comparison. FINDINGS: Liver: The right lob e of the liver measures 18.3 cm in size. The left lobe of the liver measures 15.2 cm in size. The liver demonstrates increased echotextur e, consistent with steatosis. No focal mass or intrahepatic biliary ductal dilatation is identified. There is normal hepatopedal flow in the portal vein. Gallbladder and bili akira tree: The gallbladder is unremarkable, without evidence of calculi, wall thickening, or pericholecystic fluid. There is no sonographic Arias sign. The common bile duct is normal in caliber measuring 3 mm. Kidneys: The right kidney measures 10.1 cm in length. The left kidney measures 10.9 cm in length. The kidneys are unremarkable, without evidence of masses, hydronephrosis, or calculi. Pancreas: The pancreatic head, neck, and body are unremarkable. The pancreatic tail is obscured by bowel gas. Spleen: The spleen i s normal in size and contour, measuring 10.5 cm in length. Abdominal aorta and inferior vena cava: The visualized portions of the abdominal aorta and inferior vena cava are normal in caliber. There is no free flu id in the abdomen. US/US abdomen complete IMPRESSION: Hepatomegaly and hepatic steatosis. If there is clinical concern for diverticulitis, CT o f the abdomen and pelvis with contrast is recommended. Electronically ruiz d by: Hawk Mcpherson MD 04/17/2025 07:50 AM EDT RP Dictated By: Hawk Mcpherson MD Signed By: <Electronically signed by Hawk Mcpherson MD in OV> 04/17/25 0750 DD/ 0715 TD/TT: 04/17/25 0738 Staff Interpreter: US pelvic and transvaginal ( Not yet reviewed by provider) Interpretation: Performing Lab: Notes/Report: [address] [address] Ultrasound Report Signed Patient: Val Jimenez MR#: [id number] : 1965 Acct:[id number] Age/Sex: 59 / F ADM Date: 06/20/25 Loc: HO.US Attending Dr: Hawk Cunningham MD Ordering Physician: Hawk Cunningham MD Date of Service: 06/20/25 Procedure(s): US pelvic and transvaginal Accession Number(s): [id number] cc: Hawk Cunningham MD Reason for Exam: PAIN, LEFT LOWER QUADRANT EXAMINATION: US PELVIS CLINICAL INFORMATION: Left lower quadrant pain COMPARISON: None available. TECHNIQUE: Ultrasound of the pelvis is performed using both transabdominal and transvaginal transducers along with Doppler. Transvaginal imaging is performed due to inadequate visualization transabdominally. FINDINGS: Uterus: The uterus is surgically absent. The cervix remains intact and appears to be unremarkable. There is trace fluid in the endocervical canal. Adnexa: Both ovaries are visualized. There is normal color flow to the adnexa. There is no ovarian torsion. There is no pelvic ascites or fluid collection. Right ovary measures 2.7 x 1.4 x 1.6 cm. Left ovary measures 2.2 x 2.0 x 2.1 cm. A few small follicles are visible. US/US pelvic and transvaginal IMPRESSION: Status post hysterectomy with intact cervix. Otherwise, unremarkable exam. Electronically signed by: Agustin Cerrato MD 06/20/2025 02:59 PM EDT RP Dictated By: Agustin Cerrato MD Signed By: <Electronically signed by Agustin Cerrato MD in OV> 06/20/25 1459 DD/ 1433 TD/TT: 06/20/25 1445 Staff Interpreter: [place] [address] Ultrasound Report Signed Patient: Stevenson Jimenez MR#: [id number] : 1965 Acct:[id number] Age/Sex: 59 / F ADM Date: 06/20/25 Loc: HO.US Attending Dr: Hawk Cunningham MD Ordering Physician: Hawk Cunningham MD Date of Service: 06/20/25 Procedure(s): US pel marylu and transvaginal Accession Number(s): [id number] cc: Hawk Cunningham MD Reason for Exam: VLAD N, LEFT LOWER QUADRANT EXAMINATION: US PELVIS CLINICAL INFORMATION: Left lower quadrant pain COMPARISON: None available. TECHNIQUE: Ultrasound of the pelvis is performed using both transabdominal and transvaginal transducers along with Doppler. Transvaginal imaging is performed due to inadequate visualization transabdominally. FINDINGS: Uterus: The uterus is surgically absent. The cervix remains intact and appears to be unremarkable. There is trace fluid in the endocervical canal. Adnexa: Both ovaries are visualized. There is normal color flow to the adnexa. There is no ovarian torsion. There is no pelvic ascites or fluid collection. Right ovary measures 2.7 x 1.4 x 1.6 cm. Left ovary measures 2.2 x 2.0 x 2.1 cm. A few small follicles are visible. US/US pelvic and transvaginal IMPRESSION: Status post hysterectomy with intact cervix. Otherwise, unremarka ble exam. Electronically ruiz d by: Agustin Cerrato MD 06/20/2025 02:59 PM EDT RP Dictated By: Agustin Cerrato MD Signed By: <Electronically signed by Agustin Cerrato MD in OV> 06/20/25 1459 DD/ 1433 TD/TT: 06/20/25 1445 Staff Interpreter: Reason For Referral Reason evaluate and treatme nt severe sciatica Diagnosis 1 Sciatica, unspecifie d laterality (M54.30) Referral Organization Hawk Cunningham III, MD Referring Provider First Name Hawk Referring Provider Last Name Cunningham Referring Provider Speciality Internal edicine Referred Provider [facility] [place] Referred Provider Specialty Physical Med icine General Notes Kimberlee May CMA 08/20 11:47:29 AM >ref/progress note faxed to [facility], Kimberlee May CMA 08/30/2024 03:47:30 PM > [facility] called pt but she defered at this time and will call them back to set up appt Referral Priority Routine Reason Evaluate and treat Diagnosis 1 Routine gynecologica l examination (Z01.419) Referral Organization Hawk Cunningham III, MD Referring Provider First Name Hawk Referring Provider Last Name Cunningham Referring Provider Speciality Internal edicine Referred Organization [facility] nter Referred Provider [facility] er, [facility] [facility] Referred Address [address] [place] [address],[place], [id number], Referred Provider Specialty OB - Gynecol ogy General Notes Malinda Kumari 06/12/2025 02:44:43 PM > referral faxed with last progress note. Referral Priority Routine Medications Medication SIG (Take, Route, Frequency, Duration) Notes Start Date End Date Status Claritin 10 MG 1 tablet Orally Once a day Active Vitamin D 50 MCG (1999) 1 tablet [...] Problem Status W/U Status Risk Notes Problem 167540669579862 Obesity (BMI 30.0-34.9) (E66.9) Active confirmed She has lost weight. We discussed diet and nutrition and made a plan to lose further weight loss. Problem 84845764 Other chronic pain (G89.29) Active confirmed She has chroni c intermittent back pain which is now improving. No change in her regimen was necessary today. Problem Left lower quadrant pain (834791441) Left lower quadrant pain (R10.32) Active confirmed The ultrasound is negative. I have ordered a ;pelvic ultrasound and engine dynamometer tester consult. Problem 21643694 Essential hypertension (I10) Active confirmed Her blood pressure is elevated. Medication will be given if she agrees after the abdominal pain is diagnosed. Problem 64516192 Sciatica, unspecified laterality (M54.30) Active confirmed Problem 510123763 Environmental allergies (Z91.09) Active confirmed She has had no recent complaints of allergy now that it is winter. She expects to have allergies to pollen this coming spring and we will deal with that. Problem Hyperlipidaemia (34495458) Hyperlipidemia, unspecified hyperlipidemia type (E78.5) Active confirmed Her total cholesterol is 247. We have discussed diet and nutrition today. We have reviewed her cardiovascular risk factors. We have elected to try aggressive weight loss to reduce her lipids and weight and blood pressure. She continues to decline a statin prescription. Problem 11450671 Sciatica of righ t side (M54.31) Active [...] her cyclobenzaprine . She was referred for [facility] for rehabilitation medicine. Problem Osteopenia following menopause (disorder) (680769937) Osteopenia after menopause (M81.0) Active confirmed She will continue on vitamin D as needed as well as 1 g of calcium carbonate daily. Problem 322367035 Left lower quadrant abdominal pain (R10.32) Active confirmed Problem 596270377 H/O hysterectomy for benign disease (Z90.710) Active confirmed I have ask ed her to ask the power chisel operator whom she will see next month to clarify her menopausal status. Problem 126702652 Gastroesophageal reflux disease with esophagitis without hemorrhage (K21.00) Active confirmed Her GERD is well controlled with current medications, which were continued. Problem 662937744 Family history o f ischemic heart disease (Z82.49) Active confirmed A treadmill stress test has been ordered at her request. Problem 4431219238 Steatosis (E88.89) Active confirmed This ws seen in the livewer on the ultrasound. There is mild elevation of the LFTs. Vital Signs Heart Rate 69 /min 04/26/2025 Temperature 97.3 degrees Fahrenheit 04/26/2025 Blood pressure diastolic 76 mm Hg 04/26/2025 Height 62 in 04/26/2025 Blood pressure systolic 140 mm Hg 04/26/2025 Weight 201 lbs 04/26/2025 BMI 36.76 kg/m2 04/26/2025 Encounters Encounter Location Date Provider Diagnosis Hawk Cunningham III, MD [address] [place] [address] [place] [phone] 08/14/2024 Hawk Cunningham Sciatica of right si de M54.31 ; Obesity (BMI 30.0-34.9) E66.9 ; Environmental allergies Z91.09 and Hyperlipidemia, unspecified hyperlipidemia type E78.5 Hawk Cunningham III, MD [address] [place] [address] [place] [id number] 08/21/2024 Hawk Cunningham Lumbar radiculopathy M54.16 ; Obesity (BMI 30.0-34.9) E66.9 ; Hyperlipidemia, unspecified hyperlipidemia type E78.5 ; Environmental allergies Z91.09 and Gastroesophageal reflux disease with esophagitis without hemorrhage K21.00 Hawk Cunningham III, MD [address] [place] [address] [place] [phone] 04/16/2025 Hawk Cunningham Left lower quadrant abdominal pain R10.32 ; Obesity (BMI 30.0-34.9) E66.9 ; Gastroesophageal reflux disease with esophagitis without hemorrhage K21.00 ; Essential hypertension I10 ; H/O hysterectomy for benign disease Z90.710 ; Hyperlipidemia, unspecified hyperlipidemia type E78.5 ; Sciatica of right side M54.31 ; Family history of ischemic heart disease Z82.49 and Osteopenia after menopause M81.0 Hawk Cunningham III, MD [address] [place] [address] [place] [id number] 04/26/2025 Hawk Cunningham Left lower quadrant pain R10.32 ; Steatosis E88.89 ; Hyperlipidemia, unspecified hyperlipidemia type E78.5 ; Environmental allergies Z91.09 ; H/O hysterectomy for benign disease Z90.710 ; Gastroesophageal reflux disease with esophagitis without hemorrhage K21.00 ; Essential hypertension I10 ; Obesity (BMI 30.0-34.9) E66.9 and Lumbar back pain M54.5 Hawk Cunningham III, MD [address] [place] [address] [place] [phone] 2024 Hawk Cunningham III, MD [address] [place] [address] [place] [phone] 06/12/2025 Hawk Cunningham Assessments Encounter Date Diagnosis (ICD [...] take her cyclobenzaprine. She was referred for [facility] spine [facility] sports for rehabilitation medicine. [...] lower quadrant abdominal pain (ICD-10 - R10.32) 04/26/2025 Left lower quadrant pain (ICD-10 - R10.32) The ultrasound is negative. I have ordered a ;pelvic ultrasound and engine dynamometer tester consult. 04/26/2025 Steatosis (ICD-10 - E88.89) This ws seen in the livewer on the ultrasound. There is mild elevation of the LFTs. 08/14/2024 Environmental allergies (ICD-10 - Z91.09) She [...] with current medications, which were continued. 04/26/2025 Hyperlipidemia, unspecified hyperlipidemia type (ICD-10 - E78.5) Her total cholesterol is 247. We have discussed diet and nutrition today. We have reviewed her cardiovascular risk factors. We have elected to try aggressive weight loss to reduce her lipids and weight and blood pressure. She continues to decline a statin prescription. 08/14/2024 Hyperlipidemia, unspecified hyperlipidemia type (ICD-10 - [...] been stable and no change was made. 04/26/2025 Environmental allergies (ICD-10 - Z91.09) She [...] I have asked her to ask the power chisel operator whom she will see next month to clarify her menopausal status. 04/26/2025 H/O hysterectomy for benign disease (ICD-10 - Z90.710) I have asked her to ask the power chisel operator whom she will see next month to clarify her menopausal status. 04/16/2025 Hyperlipidemia, unspecified hyperlipidemia type (ICD-10 - E78.5) Her total cholesterol is 239. We have discussed diet and nutrition today. We have reviewed her cardiovascular risk factors. We have elected to try aggressive weight loss to reduce her lipids and weight and blood pressure. 04/26/2025 Gastroesophageal reflux disease with esophagitis without hemorrhage (ICD-10 - K21.00) Her GERD is well controlled with current medications, which were continued. 04/16/2025 Sciatica of right si de (ICD-10 [...] take her cyclobenzaprine. She was referred for [facility] spine and sports for rehabilitation medicine. 04/26/2025 Essential hypertensi on (ICD-10 - I10) Her blood pressure is elevated. Medication will be given if she agrees after the abdominal pain is diagnosed. 04/16/2025 Family history of ischemic heart disease (ICD-10 - Z82.49) A treadmill stress test has been ordered at her request. 04/26/2025 Obesity (BMI 30.0-34.9) (ICD-10 - E66.9) She has lost weight. We discussed diet and nutrition and made a plan to lose further weight loss. 04/16/2025 Osteopenia after menopause (ICD-10 - M81.0) She will continue on vitamin D as needed as well as 1 g of calcium carbonate daily. 04/26/2025 Lumbar back pain (ICD-10 - M54.5) This is likely degenerative disc disease with nerve compression causing bilateral radiation of the hips. She was treated with a muscle relaxer and dexamethasone with close follow-up. Plan Of Treatment Pending Test Test Name Order Date PROFILE, FASTING (COMPREHENSIVE METABOLI C) 12/31/2021 PROFILE, FASTING (COMPREHENSIVE METABOLI C) 03/18/2020 PROFILE, FASTING (COMPREHENSIVE METABOLI C) 03/14/2023 PROFILE, FASTING (COMPREHENSIVE METABOLI C) 03/16/2021 PROFILE, FASTING (COMPREHENSIVE METABOLI C) 09/16/2022 PROFILE, FASTING (COMPREHENSIVE METABOLI C) 07/01/2020 HEMOGLOBIN A1C (GLYCOHEMOGLOBIN) 021 LIPID PANEL 07/01/2020 LIPID PANEL 12/31/2021 LIPID PANEL 03/18/2020 LIPID PANEL 03/14/2023 LIPID PANEL 03/16/2021 CBC w DIFF 07/01/2020 CBC w DIFF 12/31/2021 CBC w DIFF 03/18/2020 CBC w DIFF 03/14/2023 CBC w DIFF 03/16/2021 CBC w DIFF 09/16/2022 Lipid Panel 09/16/2022 US pelvic and transvaginal 06/20/2025 US pelvic and transvaginal 04/26/2025 Next Appt Details Provider Name:Hawk Sanchesne , 04/18/2026 09:00:00 AM, [address] [place] [address] , [address], [place], [phone], Insurance Providers Payer Name Payer Address Payer Phone Subscriber Number Group Number Insured Name Patient Relationship to Insured Coverage Start Date Coverage End Date [facility] [address] [facility] [address] [facility] [place] [id number] Val Jimenez Self - patient is the [...]
--- OUTSIDE RECORDS SUMMARY | 2025-06-20 15:56 | XMS_ITS | Clinical Summary ---
Author Organization [facility] Address [address] [place] [address] Phone Care Team Providers Care Leather Coater Name Role Phone Hawk Cunningham MD Primary Care Provider [phone] Allergies No known active allergies Medications cholecalciferol [...] Last Done Comments Breast Cancer Screening 1964 Colorectal Cancer Screening: Colonoscopy 1964 DTaP,Tdap,and Td Vaccines (1 - Tdap) 1983 Pneumococcal Vaccine: 50+ Years (1 of 1 - PCV) 2014 Zoster Vaccines (1 of 2) 2014 Cholesterol Screening (Lipid Panel) 08/21/2022 HIV Screening 08/21/2022 Hepatitis C Screening 08/21/2022 Social Influencers of Health Screening 08/21/2022 RSV Immunization Adult Patients (1 - Risk 60-74 years 1-dose series) 2024 Depression Screening 09/19/2024 COVID-19 Vaccine (4 - 2024-2 6 season) 2025 01/12/2022, 08/27/2021, 08/20/2021 Influenza Vaccine (#1) 2025 3, 05/20/2022, 08/20/2021 [...] Most Recently Relevant to Health Maintenance Insurance [facility] [address] [place] [address] Care Teams Leather Coater Relationship Specialty Start Date End Date Hawk Cunningham MD [address] [place] [id number] PCP - General 04/15/23
== END 2025-06-20 14:19 | disposition home or self-care (01) ==
LOC: HO.US 14:18
PROVIDERS: PCP Internal Medicine Medical Oncology; Visit Provider Internal Medicine Medical Oncology
DX: R10.32 Left lower quadrant pain (principal)
CPT/HCPCS: 76830; 76856

== ENCOUNTER → 2025-06-20 14:20 | Outpatient (BNV) | payer OTHER, SELFPAY | PROVIDERS: PCP Internal Medicine Medical Oncology; Visit Provider Radiology Diagnostic Radiology | DX: R10.32 Left lower quadrant pain (principal); N83.02 Follicular cyst of left ovary | CPT/HCPCS: 76830; 76856 ==